=== PATIENT | male | born 1955 | race Hispanic/Latino ===

== ENCOUNTER 2017-11-09 09:32 | Day surgery (SDC) | payer MEDICARE ==
[2017-11-08 11:34] VITALS: BMI 26.4
[2017-11-09 10:21] LABS: INR-International Normal Ratio 1.4; Prothrombin Time 17.2 SEC (12.0-14.7)
[2017-11-09 10:31] LABS: #Eosinphils 0.5 thou/uL (0.0-0.7); #Lymphocytes 1.5 thou/uL (1.20-3.40); #Monocytes 0.7 thou/uL (0.11-0.59); #Neutrophils 4.7 thou/uL (1.40-6.50); %Basophils 0.6 % (0.0-1.0); %Eosinophils 6.7 % (0.0-10.0); %Lymphocytes 20.3 % (21.0-51.0); %Monocytes 9.2 % (0.0-10.0); %Neutrophils 63.2 % (42.0-75.0); Hemoglobin 13.1 g/dL (14.0-18.0); Mean Corpuscular HGB CONC 34.6 g/dL (32.0-36.0); Mean Corpuscular Hemoglobin 35.3 pg (27.0-31.0); Mean Platelet Volume 6.6 fL (7.4-10.4); Platelet Count 159 thou/uL (130-400); RBC Distribution Width 14.4 % (11.5-14.5); Red Blood Cell (RBC) Count 3.72 mill/uL (4.70-6.10); White Blood Cell (WBC) Count 7.5 thou/uL (4.8-10.8)
[2017-11-09] MEDS ORDERED: Sodium Bicarbonate 2.5 MEQ/5 ML VIAL ONE (11:06)
[2017-11-09] MEDS ORDERED: Lidocaine 1% PF 5 ML VIAL ONE (11:07)
[2017-11-09 12:13] VITALS: BP 131/74; TEMP 98.1
[2017-11-09 12:45] LABS: BF Color Yellow; Body Fluid Source Ascites Body Fluid; Clarity Hazy (Clear); RBC Background Count 0.009; Tube # EDTA; WBC Background Count 0.01
[2017-11-09 12:46] LABS: WBC/NonHematic-Auto 302 /cumm
--- NOTE | 2017-11-09 13:32 | ULT ---
ULTRASOUND GUIDED PARACENTESIS: HISTORY: Ascites. TECHNIQUE: Multiple longitudinal and transverse images of the abdomen are obtained using a Multi-Hertz curviline ar transducer. Real-time images are used to evaluate ascites. The largest collection appears to be in the midline infraumbilical region. The skin surface was prepped and draped in the usual sterile m autumn, using a chloraprep introducer. The overlying skin was anesthetized using 1% Lidocaine solutio n. Using ultrasound guidance, a 5 Welsh Yueh needle was placed into the peritoneal cavity fluid col lection. A total of 2.3 L of fluid was removed without difficulty. IMPRESSION: Successful ultrasound-guided paracentesis. POS: [facility]
[2017-11-09 13:45] LABS: BF RBC Count - Manual 360 /cumm
--- NOTE | 2017-11-09 14:22 | ULT ---
HEPATIC ULTRASOUND WITH VASCULAR DUPLEX INCLUDING COLOR AND SPECTRAL DOPPLER IMAGING: HISTORY: A 62-year-old male with ascites. FINDINGS: Liver echogenicity is somewhat heterogeneous with some slight marginal nodularity. No evidence for g allstones, gallbladder wall thickening, or pericholecystic fluid. The common bile duct is 0.5 cm. B orderline splenomegaly. Probable small splenule. Minimal ascites, status post paracentesis. Vascular duplex with color and spectral Doppler imaging demonstrates antegrade hepatic arterial, port al venous, and hepatic venous flow. IMPRESSION: Coarse altered increased echogenicity with some slight marginal nodularity. No evidence of gallstone s or ductal dilatation. Antegrade hepatic venous, portal venous, and hepatic arterial flow. Borderl ine sized spleen. A very small amount of ascites post paracentesis. POS: [facility]
[2017-11-09 14:46] LABS: BF Segmented Neutrophils 10 %; Cell Count Non Hematic 58 %; Lymphocytes 31 %
== END 2017-11-09 12:14 | disposition home or self-care (01) ==
LOC: ULT 09:32
PROVIDERS: ATTEND Internal Medicine Gastroenterology
PROC: 0W9G3ZZ Drainage of Peritoneal Cavity, Percutaneous Approach (ICD-10-PCS; principal; 2017-11-09)
DX: R18.8 Other ascites (principal); K74.60 Unspecified cirrhosis of liver; E11.9 Type 2 diabetes mellitus without complications; I10 Essential (primary) hypertension; Z87.891 Personal history of nicotine dependence; Z79.84 Long term (current) use of oral hypoglycemic drugs; Z79.899 Other long term (current) drug therapy
CPT/HCPCS: 36415; 49083; 76705; 82042; 84157; 85025; 85060; 85610; 85730; 88112; 88305; 89051; J2001

== ENCOUNTER → 2017-12-07 | Day surgery (SDC) | payer MEDICARE ==
[2017-12-06 09:26] VITALS: BMI 26.4
[~2017-12-07] MED LIST: Sodium Bicarbonate 2.5 MEQ/5 ML VIAL ONE
[2017-12-07 12:25] LABS: #Eosinphils 1.9 thou/uL (0.0-0.7); #Lymphocytes 2.2 thou/uL (1.20-3.40); #Monocytes 0.9 thou/uL (0.11-0.59); #Neutrophils 3.2 thou/uL (1.40-6.50); %Basophils 0.6 % (0.0-1.0); %Eosinophils 23.2 % (0.0-10.0); %Lymphocytes 26.4 % (21.0-51.0); %Monocytes 10.8 % (0.0-10.0); %Neutrophils 39.1 % (42.0-75.0); Hemoglobin 13.2 g/dL (14.0-18.0); Mean Corpuscular HGB CONC 34.2 g/dL (32.0-36.0); Mean Corpuscular Hemoglobin 35.1 pg (27.0-31.0); Mean Platelet Volume 6.1 fL (7.4-10.4); Platelet Count 204 thou/uL (130-400); RBC Distribution Width 14.4 % (11.5-14.5); Red Blood Cell (RBC) Count 3.75 mill/uL (4.70-6.10); White Blood Cell (WBC) Count 8.2 thou/uL (4.8-10.8)
[2017-12-07 12:39] LABS: INR-International Normal Ratio 1.5; PTT 35.9 SEC (22.9-36.1); Prothrombin Time 18.2 SEC (12.0-14.7)
[2017-12-07 13:55] VITALS: TEMP 97.1
--- NOTE | 2017-12-07 14:13 | ULT ---
ULTRASOUND PARACENTESIS THERAPEUTIC: Date: 12/07/17 HISTORY: 62-year-old male with ascites. TECHNIQUE: Four quadrant abdominal survey performed. Signed, informed consent obtained. Right lower quadrant rafael ected. Overlying skin prepared and draped in the usual sterile fashion. 25 gauge needle used to apply buffered lidocaine superficially and deeply, under ultrasound guidance. 5 Polish Yueh catheter and s tylette advanced in tandem with the 25 gauge needle under ultrasound guidance. 25 gauge needle and Stokes eh stylette removed. Yueh catheter connected to evacuated bottles via plastic tubing. Ascites fluid d rained. Catheter removed. Patient tolerated procedure well. No complications. FINDINGS: Prior to the procedure, ultrasound images demonstrate moderate volume of free intraperitoneal fluid, greatest in the right lower quadrant with the patient in RPO position. Postprocedure image demonstrat es no residual fluid in the right lower quadrant. A total of 2,900 mL of ascites fluid was drained. IMPRESSION: Successful therapeutic paracentesis, with drainage of 2.9 liters of ascites fluid. POS: [facility]
== END ==
LOC: ULT 12:01
PROVIDERS: ATTEND Radiology Neuroradiology
PROC: 0W9G3ZZ Drainage of Peritoneal Cavity, Percutaneous Approach (ICD-10-PCS; principal; 2017-12-07)
DX: R18.8 Other ascites (principal); K74.60 Unspecified cirrhosis of liver
CPT/HCPCS: 36415; 49083; 85025; 85610; 85730

== ENCOUNTER 2018-01-26 07:46 | Day surgery (SDC) | payer MEDICARE, MEDICAID ==
[2018-01-26 08:12] LABS: INR-International Normal Ratio 1.3; PTT 34.4 SEC (22.9-36.1); Prothrombin Time 16.7 SEC (12.0-14.7)
[2018-01-26 08:15] LABS: #Eosinphils 1.7 thou/uL (0.0-0.7); #Lymphocytes 1.9 thou/uL (1.20-3.40); #Monocytes 0.8 thou/uL (0.11-0.59); #Neutrophils 2.6 thou/uL (1.40-6.50); %Basophils 0.7 % (0.0-1.0); %Eosinophils 24.6 % (0.0-10.0); %Lymphocytes 27.2 % (21.0-51.0); %Monocytes 10.7 % (0.0-10.0); %Neutrophils 36.8 % (42.0-75.0); Hemoglobin 12.3 g/dL (14.0-18.0); Mean Corpuscular HGB CONC 33.5 g/dL (32.0-36.0); Mean Corpuscular Hemoglobin 33.3 pg (27.0-31.0); Mean Corpuscular Volume 99.5 fL (78.0-98.0); Mean Platelet Volume 7.1 fL (7.4-10.4); Platelet Count 135 thou/uL (130-400); RBC Distribution Width 14.3 % (11.5-14.5); Red Blood Cell (RBC) Count 3.71 mill/uL (4.70-6.10)
[2018-01-26] MEDS ORDERED: Sodium Bicarbonate 2.5 MEQ/5 ML VIAL ONE (08:20)
[2018-01-26] MEDS ORDERED: Lidocaine 1% PF 5 ML VIAL ONE (08:27)
--- NOTE | 2018-01-26 10:05 | ULT ---
ULTRASOUND GUIDED PARACENTESIS: HISTORY: Recurrent ascites. FINDINGS: After informed consent was obtained, the patient was prepped and draped in the normal sterile fashion . The largest pocket of fluid was in the left lower quadrant of the abdomen. Local anesthesia was o btained with 1% Xylocaine mixed with sodium bicarb. A small skin incision was made with a #11 scalpe l blade. A 6 Danish Yueh catheter was introduced and 5 liters of typical straw-colored fluid was obt ained. The patient tolerated the procedure. There were no immediate complications. IMPRESSION: Successful ultrasound-guided paracentesis with 5 liters of fluid. POS: [facility]
[2018-01-26 15:19] VITALS: BP 131/74; TEMP 97.6
== END 2018-01-26 09:20 | disposition home or self-care (01) ==
LOC: ULT 07:46
PROVIDERS: ATTEND Internal Medicine Gastroenterology
PROC: 0W9G3ZZ Drainage of Peritoneal Cavity, Percutaneous Approach (ICD-10-PCS; principal; 2018-01-26)
DX: R18.8 Other ascites (principal); K74.60 Unspecified cirrhosis of liver; I10 Essential (primary) hypertension; E11.9 Type 2 diabetes mellitus without complications; F10.11 Alcohol abuse, in remission; Z87.891 Personal history of nicotine dependence; Z79.84 Long term (current) use of oral hypoglycemic drugs; Z79.899 Other long term (current) drug therapy
CPT/HCPCS: 36415; 49083; 85025; 85610; 85730; J2001

== ENCOUNTER → 2018-03-09 | Day surgery (SDC) | payer MEDICARE, MEDICAID ==
[2018-03-08 13:29] VITALS: BMI 25.2
[~2018-03-09] MED LIST changes: +Lidocaine 1% PF 5 ML VIAL ONE
[2018-03-09 13:14] LABS: #Basophils 0.1 thou/uL (0.0-0.2); #Lymphocytes 1.5 thou/uL (1.20-3.40); #Monocytes 0.6 thou/uL (0.11-0.59); #Neutrophils 2.4 thou/uL (1.40-6.50); %Basophils 1.1 % (0.0-1.0); %Lymphocytes 26.4 % (21.0-51.0); %Monocytes 10.8 % (0.0-10.0); %Neutrophils 43.8 % (42.0-75.0); Hemoglobin 13.3 g/dL (14.0-18.0); Mean Corpuscular HGB CONC 32.5 g/dL (32.0-36.0); Mean Corpuscular Hemoglobin 32.1 pg (27.0-31.0); Mean Corpuscular Volume 98.7 fL (78.0-98.0); Mean Platelet Volume 6.5 fL (7.4-10.4); Platelet Count 205 thou/uL (130-400); RBC Distribution Width 13.8 % (11.5-14.5); Red Blood Cell (RBC) Count 4.14 mill/uL (4.70-6.10); White Blood Cell (WBC) Count 5.5 thou/uL (4.8-10.8)
[2018-03-09 13:26] LABS: INR-International Normal Ratio 1.3; PTT 34.5 SEC (22.9-36.1); Prothrombin Time 16.5 SEC (12.0-14.7)
--- NOTE | 2018-03-09 15:21 | ULT ---
ULTRASOUND-GUIDED PARACENTESIS: CLINICAL INDICATION: Ascites. PROCEDURE: After informed consent had been obtained, the patient was escorted to the ultrasound suite and placed in a supine position. The abdomen was imaged which revealed adequate ascites for the procedure. Th e skin of the abdomen was then prepped and draped in the standard sterile fashion and the skin surfac e, subcutaneous tissues, and peritoneal lining of the abdomen were anesthetized with 1% Lidocaine buf fered with sodium bicarbonate. A right lower quadrant approach was selected. A small skin incision was made at the site of topical anesthesia. Subsequently, under real-time ultrasound guidance a BioPharmX catheter was advanced through the incision site into the peritoneal cavity. Ascites was present at the catheter hub. The catheter was then secured to vacuum sealed sterile containers, via sterile tub ing and subsequently 5 L of clear yellow ascites was drained from the patient. The patient was then removed from the patient. The patient tolerated the procedure well without evidence of complication. Post procedure imaging revealed no complication and interval reduction in volume of ascites. The p atient was monitored by a radiology nurse and was stable in condition. IMPRESSION: Technically successful ultrasound-guided paracentesis, as above. POS: [facility]
== END ==
LOC: ULT 12:47
PROVIDERS: ATTEND Internal Medicine Gastroenterology
PROC: 0W9G3ZZ Drainage of Peritoneal Cavity, Percutaneous Approach (ICD-10-PCS; principal; 2018-03-09)
DX: R18.8 Other ascites (principal); K74.60 Unspecified cirrhosis of liver; E11.9 Type 2 diabetes mellitus without complications; I10 Essential (primary) hypertension; Z87.891 Personal history of nicotine dependence; Z79.899 Other long term (current) drug therapy
CPT/HCPCS: 36415; 49083; 85025; 85610; 85730; J2001

== ENCOUNTER 2018-03-31 07:48 | Day surgery (SDC) | payer MEDICARE, MEDICAID ==
[2018-03-31] MEDS ORDERED: Sodium Bicarbonate 2.5 MEQ/5 ML VIAL ONE (08:27)
[2018-03-31 10:00] VITALS: BP 122/81; TEMP 97.6
--- NOTE | 2018-03-31 10:44 | ULT ---
ULTRASOUND GUIDED PARACENTESIS: INDICATION: Ascites. TECHNIQUE: Informed consent was obtained. Preprocedure ultrasound was performed to evaluate the location of the largest collection within the abdominal cavity. A site overlying the left lower quadrant was marked. The site was prepped and draped in the usual sterile fashion. Buffered 1% Lidocaine was administer ed to the overlying subcutaneous tissues. Under ultrasound guidance, a 5 Nepali Yueh catheter was gu ided down into the collection in the left lower quadrant. Five liters of normal-appearing peritoneal fluid was removed. The patient tolerated the procedure without difficulty. IMPRESSION: Successful ultrasound-guided paracentesis removal of 5 liters of normal-appearing peritoneal fluid. POS: [facility]
== END 2018-03-31 09:15 | disposition home or self-care (01) ==
LOC: ULT 07:48
PROVIDERS: ATTEND Internal Medicine Gastroenterology
PROC: 0W9G3ZZ Drainage of Peritoneal Cavity, Percutaneous Approach (ICD-10-PCS; principal; 2018-03-31)
DX: R18.8 Other ascites (principal); K74.60 Unspecified cirrhosis of liver; E11.9 Type 2 diabetes mellitus without complications; I10 Essential (primary) hypertension; K76.6 Portal hypertension; F10.11 Alcohol abuse, in remission; Z87.891 Personal history of nicotine dependence; Z79.84 Long term (current) use of oral hypoglycemic drugs; Z79.899 Other long term (current) drug therapy
CPT/HCPCS: 49083

== ENCOUNTER 2018-04-21 07:59 | Day surgery (SDC) | payer MEDICARE, MEDICAID ==
[2018-04-20 09:28] VITALS: BMI 26.4
[2018-04-21 08:15] LABS: #Eosinphils 0.9 thou/uL (0.0-0.7); #Lymphocytes 1.5 thou/uL (1.20-3.40); #Monocytes 0.4 thou/uL (0.11-0.59); #Neutrophils 2.7 thou/uL (1.40-6.50); %Basophils 0.7 % (0.0-1.0); %Eosinophils 16.3 % (0.0-10.0); %Lymphocytes 26.8 % (21.0-51.0); %Monocytes 7.7 % (0.0-10.0); %Neutrophils 48.4 % (42.0-75.0); Hemoglobin 12.1 g/dL (14.0-18.0); Mean Corpuscular HGB CONC 33.2 g/dL (32.0-36.0); Mean Corpuscular Hemoglobin 32.1 pg (27.0-31.0); Mean Corpuscular Volume 96.6 fL (78.0-98.0); Mean Platelet Volume 6.9 fL (7.4-10.4); Platelet Count 190 thou/uL (130-400); RBC Distribution Width 14.4 % (11.5-14.5); Red Blood Cell (RBC) Count 3.78 mill/uL (4.70-6.10); White Blood Cell (WBC) Count 5.5 thou/uL (4.8-10.8)
[2018-04-21 08:21] LABS: INR-International Normal Ratio 1.4; PTT 34.9 SEC (22.9-36.1); Prothrombin Time 16.9 SEC (12.0-14.7)
[2018-04-21] MEDS ORDERED: Sodium Bicarbonate 2.5 MEQ/5 ML VIAL ONE (08:35)
[2018-04-21 12:11] VITALS: BP 111/64; TEMP 97.9
--- NOTE | 2018-04-21 12:16 | ULT ---
ULTRASOUND GUIDED PARACENTESIS THERAPEUTIC: DATE: 04/21/2018. HISTORY: A 62-year-old male with abdominal distention due to ascites due to cirrhosis. Limit of 5 liters or less drainage specifically ordered. TECHNIQUE: Signed informed consent obtained. Four quadrant survey of abdomen with ultrasound. Left lower quadr ant pocket selected. Overlying skin prepared and draped in the usual sterile fashion. A 25-gauge ne edle was used to apply buffered Lidocaine superficially and deeply through the abdominal wall and per itoneal surface. A 5 Bulgarian Yueh catheter with stylette advanced in tandem with the 25-gauge needle. The 25-gauge needle and stylette were removed. Yueh catheter connected to a series of evacuated gregorio ttles via plastic tubing. After drainage, the Yueh catheter was removed. The patient tolerated the procedure well. No complications. FINDINGS: Images prior to the procedure demonstrate large volume of free intraperitoneal fluid. A total of 5000 mL of nonhemorrhagic, straw-colored fluid was drained. Post procedure images still demonstrate a moderate to large volume of residual fluid. IMPRESSION: 1. Successful therapeutic paracentesis, with drainage of 5 liters of ascites. 2. Moderate to large volume of residual ascites remains after the requested limit of 5 liter drainag e. POS: [facility]
== END 2018-04-21 09:38 | disposition home or self-care (01) ==
LOC: ULT 07:59
PROVIDERS: ATTEND Internal Medicine Gastroenterology
PROC: 0W9G3ZZ Drainage of Peritoneal Cavity, Percutaneous Approach (ICD-10-PCS; principal; 2018-04-21)
PROC: BW40ZZZ Ultrasonography of Abdomen (ICD-10-PCS; 2018-04-21)
DX: K74.60 Unspecified cirrhosis of liver (principal); R18.8 Other ascites
CPT/HCPCS: 36415; 49083; 85025; 85610; 85730

== ENCOUNTER 2018-05-12 08:07 | Day surgery (SDC) | payer MEDICARE, MEDICAID ==
[2018-05-11 16:26] VITALS: BMI 26.4
--- NOTE | 2018-05-12 11:05 | ULT ---
ULTRASOUND GUIDED PARACENTESIS: Date: 05-12-18 History: Cirrhosis. Ascites. Technique: After informed consent was obtained, the patient was placed on the ultrasound table in supine positio n. Limited sonogram of the abdomen was performed. An area in the midaxillary line, left mid abdomen, was marked. The area of prepped and draped in the usual sterile fashion. Skin and subcutaneous tissues were infiltrated with buffered 1% Lidocaine for local anesthesia. Small skin incision was made. Utilizing concurrent real-time ultrasound guidance, a 19 gauge QURIUM Solutionseh needle w ith 5 Slovak catheter were advanced into the abdomen. After the return of fluid, the catheter was adv anced and needle was removed. Approximately 5 L of cloudy yellow fluid was aspirated. The catheter wa s removed and hemostatis was achieved with direct pressure. Dry sterile dressing was placed. Patient tolerated the procedure well and without immediate complication. [facility] monitoring prior to discharged. IMPRESSION: Technically successful ultrasound guided paracentesis. POS: [facility]
[2018-05-12 12:38] VITALS: BP 130/73; TEMP 98
== END 2018-05-12 09:30 | disposition home or self-care (01) ==
LOC: ULT 08:07
PROVIDERS: ATTEND Internal Medicine Gastroenterology
PROC: 0W9G3ZZ Drainage of Peritoneal Cavity, Percutaneous Approach (ICD-10-PCS; principal; 2018-05-12)
DX: R18.8 Other ascites (principal); K74.60 Unspecified cirrhosis of liver; E11.9 Type 2 diabetes mellitus without complications; I10 Essential (primary) hypertension; F10.11 Alcohol abuse, in remission; Z87.891 Personal history of nicotine dependence; Z79.84 Long term (current) use of oral hypoglycemic drugs; Z79.899 Other long term (current) drug therapy
CPT/HCPCS: 49083

== ENCOUNTER 2018-06-02 08:32 | Day surgery (SDC) | payer MEDICARE, MEDICAID ==
[2018-06-01 10:09] VITALS: BMI 26.4
[2018-06-02 08:48] LABS: #Eosinphils 0.3 thou/uL (0.0-0.7); #Lymphocytes 1.5 thou/uL (1.20-3.40); #Monocytes 0.5 thou/uL (0.11-0.59); #Neutrophils 2.4 thou/uL (1.40-6.50); %Eosinophils 5.9 % (0.0-10.0); %Lymphocytes 31.9 % (21.0-51.0); %Neutrophils 51.2 % (42.0-75.0); Hemoglobin 12.4 g/dL (14.0-18.0); Mean Corpuscular HGB CONC 32.2 g/dL (32.0-36.0); Mean Corpuscular Hemoglobin 31.6 pg (27.0-31.0); Mean Corpuscular Volume 98.2 fL (78.0-98.0); Mean Platelet Volume 6.2 fL (7.4-10.4); Platelet Count 233 thou/uL (130-400); RBC Distribution Width 13.4 % (11.5-14.5); Red Blood Cell (RBC) Count 3.92 mill/uL (4.70-6.10); White Blood Cell (WBC) Count 4.7 thou/uL (4.8-10.8)
[2018-06-02] MEDS ORDERED: Lidocaine 1% PF 5 ML VIAL ONE (08:49)
[2018-06-02] MEDS ORDERED: Sodium Bicarbonate 2.5 MEQ/5 ML VIAL ONE (08:49)
[2018-06-02 08:52] LABS: INR-International Normal Ratio 1.4; Prothrombin Time 17.1 SEC (12.0-14.7)
[2018-06-02 08:53] LABS: PTT 36.4 SEC (22.9-36.1)
[2018-06-02 10:38] VITALS: BP 137/84; TEMP 97.9
--- NOTE | 2018-06-02 13:34 | ULT ---
ULTRASOUND GUIDED PARACENTESIS: 06/02/2018 HISTORY: Cirrhosis and refractory ascites. TECHNIQUE: After informed consent was obtained, the patient was placed on the sonography table in the supine pos ition. A limited sonographic evaluation of the abdomen was performed. An area in the mid axillary l ine, right mid abdomen, was marked and meticulously prepped and draped in the usual sterile fashion. The skin and subcutaneous tissues were infiltrated with buffered 1% Lidocaine for local anesthesia. A small skin incision was made. Utilizing concurrent real-time ultrasound guidance, a 19 gauge AppZeroeh needle with a 5 Irish catheter was advanced into the abdomen. After the return of fluid, the cathet er was advanced and the needle was removed. Approximately 5 L of clear straw-colored fluid was aspir ated, as requested. The catheter was removed and hemostasis was achieved with direct pressure. Follow-up imaging demonst rated a small amount of residual intraperitoneal free fluid in the abdomen. IMPRESSION: Technically successful ultrasound guided paracentesis. POS: [facility]
== END 2018-06-02 10:15 | disposition home or self-care (01) ==
LOC: ULT 08:32
PROVIDERS: ATTEND Radiology Vascular & Interventional Radiology
PROC: 0W9G3ZZ Drainage of Peritoneal Cavity, Percutaneous Approach (ICD-10-PCS; principal; 2018-06-02)
DX: R18.8 Other ascites (principal); K74.60 Unspecified cirrhosis of liver; Z79.84 Long term (current) use of oral hypoglycemic drugs; Z79.899 Other long term (current) drug therapy
CPT/HCPCS: 36415; 49083; 85025; 85610; 85730; J2001

== ENCOUNTER 2018-06-16 12:55 | Day surgery (SDC) | payer MEDICARE, MEDICAID ==
[2018-06-16 14:46] VITALS: BP 130/66; TEMP 97.8
--- NOTE | 2018-06-17 16:18 | ULT ---
ULTRASOUND GUIDED PARACENTESIS: Date: 06/16/18 HISTORY: Recurrent ascites. TECHNIQUE/FINDINGS: After informed consent was obtained, the patient was prepped and draped in the normal sterile fashion . Local anesthesia was obtained with 1% Xylocaine. The right lower quadrant was used for the paracent esis. A 6 Malay Yueh catheter was introduced after a small skin incision made with a #11 scalpel edelmira de. A total of 5 liters of typical straw-colored fluid was obtained. The patient tolerated the proced ure well. There were no immediate complications. IMPRESSION: Ultrasound guided paracentesis of 5 liters of fluid. POS: [facility]
== END 2018-06-16 14:35 | disposition home or self-care (01) ==
LOC: ULT 12:55
PROVIDERS: ATTEND Internal Medicine Gastroenterology
PROC: 0W9G3ZZ Drainage of Peritoneal Cavity, Percutaneous Approach (ICD-10-PCS; principal; 2018-06-16)
DX: R18.8 Other ascites (principal); K74.60 Unspecified cirrhosis of liver; F10.11 Alcohol abuse, in remission; I10 Essential (primary) hypertension; E11.9 Type 2 diabetes mellitus without complications; Z79.84 Long term (current) use of oral hypoglycemic drugs; Z79.899 Other long term (current) drug therapy
CPT/HCPCS: 49083

== ENCOUNTER → 2018-06-30 | Day surgery (SDC) | payer MEDICARE, MEDICAID ==
[2018-06-29 13:14] VITALS: BMI 26.4
[2018-06-30 13:42] VITALS: BP 149/88; TEMP 98
--- NOTE | 2018-06-30 13:58 | ULT ---
ULTRASOUND GUIDED PARACENTESIS: HISTORY: Ascites. COMPARISON: 06/16/2018 FINDINGS: Successful ultrasound-guided paracentesis. A total of 5 L of yellow-colored ascites was aspirated. TECHNIQUE: Consent obtained to perform an ultrasound guided paracentesis. The patient's abdomen was evaluated. The left lower quadrant was deemed appropriate. The skin was prepped and draped in a sterile fashio n, and 1% Lidocaine, buffered with sodium bicarbonate, was used for local anesthesia. Under ultrasou nd guidance, a 5 Divehi, 7 cm Yueh catheter was advanced into the peritoneal space. Via vacuum bottl es, a total of 5 L of yellow-colored ascites was aspirated. The patient tolerated the procedure well . No immediate or post procedure complications. IMPRESSION: Successful ultrasound guided paracentesis. POS: [facility]
== END ==
LOC: ULT 10:30
PROVIDERS: ATTEND Internal Medicine Gastroenterology
PROC: 0W9G3ZZ Drainage of Peritoneal Cavity, Percutaneous Approach (ICD-10-PCS; principal; 2018-06-30)
DX: K74.60 Unspecified cirrhosis of liver (principal); R18.8 Other ascites; R79.89 Other specified abnormal findings of blood chemistry; E11.9 Type 2 diabetes mellitus without complications; I10 Essential (primary) hypertension; Z87.891 Personal history of nicotine dependence; Z79.84 Long term (current) use of oral hypoglycemic drugs; Z79.899 Other long term (current) drug therapy
CPT/HCPCS: 49083; J2001

== ENCOUNTER 2018-07-14 10:09 | Day surgery (SDC) | payer MEDICARE, MEDICAID ==
[2018-07-13 10:07] VITALS: BMI 26.4
[2018-07-14 10:29] LABS: Mean Corpuscular HGB CONC 33.1 g/dL (32.0-36.0); Mean Corpuscular Hemoglobin 32.6 pg (27.0-31.0); Mean Corpuscular Volume 98.5 fL (78.0-98.0); Mean Platelet Volume 6.1 fL (7.4-10.4); Platelet Count 195 thou/uL (130-400); RBC Distribution Width 14.7 % (11.5-14.5); White Blood Cell (WBC) Count 6.8 thou/uL (4.8-10.8)
[2018-07-14 10:35] LABS: INR-International Normal Ratio 1.3; PTT 33.5 SEC (22.9-36.1); Prothrombin Time 16.1 SEC (12.0-14.7)
[2018-07-14 10:43] LABS: Band 2 % (5-11); Eosinophils 43 % (0-10); Lymphocytes 16 % (21-51); MDiff Complete? YES; Monocytes 6 % (0-10); Neutrophil 26 % (42-75); Platelet Morphology Comment Appears Adequate; RBC Morphology Normal; Reactive Lymphocytes 6 % (0-10)
[2018-07-14] MEDS ORDERED: Sodium Bicarbonate 2.5 MEQ/5 ML VIAL ONE (10:47)
[2018-07-14 12:14] VITALS: BP 133/76; TEMP 97.8
--- NOTE | 2018-07-14 14:04 | ULT ---
ULTRASOUND GUIDED PARACENTESIS THERAPEUTIC: Date: 07/14/18 HISTORY: 62-year-old male with abdominal distention due to ascites. TECHNIQUE: Signed, informed consent obtained. Four quadrant survey of abdomen with ultrasound. Left lower quadra nt selected. Overlying skin prepared and draped in usual sterile fashion. 25 gauge needle used to guillermo ly buffered lidocaine. 5 Hungarian Yueh catheter advanced into peritoneal cavity pocket of free fluid in the left lower quadrant. After removal of stylette, the Yueh catheter was connected to a series of e vacuated bottles via plastic tubing. After drainage, the Yueh was removed. The patient tolerated the procedure well. No complications. FINDINGS: Prior to the procedure, there is a large volume of free intraperitoneal fluid. A total of 6,000 mL of nonhemorrhagic, straw-colored fluid, was drained. Postprocedure image demonstrates a small amount of residual fluid in the left lower quadrant. IMPRESSION: Successful paracentesis with drainage of 6 liters of ascites fluid. POS: [facility]
== END 2018-07-14 12:05 | disposition home or self-care (01) ==
LOC: ULT 10:09
PROVIDERS: ATTEND Internal Medicine Gastroenterology
PROC: 0W9G3ZZ Drainage of Peritoneal Cavity, Percutaneous Approach (ICD-10-PCS; principal; 2018-07-14)
DX: K74.60 Unspecified cirrhosis of liver (principal); R18.8 Other ascites; I10 Essential (primary) hypertension; E11.9 Type 2 diabetes mellitus without complications; F10.11 Alcohol abuse, in remission; Z87.891 Personal history of nicotine dependence; Z79.84 Long term (current) use of oral hypoglycemic drugs; Z79.899 Other long term (current) drug therapy
CPT/HCPCS: 49083; 85025; 85060; 85610; 85730

== ENCOUNTER 2018-07-28 10:36 | Day surgery (SDC) | payer MEDICARE, MEDICAID ==
[2018-07-27 13:03] VITALS: BMI 26.4
[2018-07-28] MEDS ORDERED: Sodium Bicarbonate 2.5 MEQ/5 ML VIAL ONE (11:09)
[2018-07-28] MEDS ORDERED: Lidocaine 1% PF 5 ML VIAL ONE (11:09)
[2018-07-28 13:04] VITALS: BP 131/69; TEMP 98
--- NOTE | 2018-07-28 13:38 | ULT ---
ULTRASOUND GUIDED PARACENTESIS: Date: 07/28/18 COMPARISON: 07/14/18. HISTORY: Ascites. FINDINGS: Successful ultrasound guided paracentesis. A total of 8 liters of slightly cloudy, yellow-colored asc ites aspirated. No immediate or postprocedure complications. TECHNIQUE: Consent obtained to perform an ultrasound guided paracentesis. Left lower quadrant was deemed appropr iate. Skin was prepped and draped in the sterile fashion. 1% lidocaine, buffered with sodium bicarbon ate, was used for local anesthesia. Under ultrasound guidance, a 5 Faroese 7 cm ID Quantiqueeh catheter was adva nced into the peritoneal space. Via multiple vacuum bottles, a total of 8 liters of slightly cloudy y ellow-colored ascites was aspirated. The patient tolerated the procedure well. No immediate or postpr ocedure complication. IMPRESSION: Successful ultrasound guided paracentesis. POS: [facility]
== END 2018-07-28 12:40 | disposition home or self-care (01) ==
LOC: ULT 10:36
PROVIDERS: ATTEND Internal Medicine Gastroenterology
PROC: 0W9G3ZZ Drainage of Peritoneal Cavity, Percutaneous Approach (ICD-10-PCS; principal; 2018-07-28)
DX: R18.8 Other ascites (principal); Z79.84 Long term (current) use of oral hypoglycemic drugs; Z79.899 Other long term (current) drug therapy
CPT/HCPCS: 49083; J2001

== ENCOUNTER 2018-08-11 10:47 | Day surgery (SDC) | payer MEDICARE, MEDICAID ==
[2018-08-10 14:37] VITALS: BMI 26.4
[2018-08-11] MEDS ORDERED: Sodium Bicarbonate 2.5 MEQ/5 ML VIAL ONE (10:54)
[2018-08-11] MEDS ORDERED: Lidocaine 1% PF 5 ML VIAL ONE (10:54)
[2018-08-11 13:16] VITALS: BP 129/74; TEMP 97.8
--- NOTE | 2018-08-11 14:03 | ULT ---
ULTRASOUND GUIDED PARACENTESIS: Date: 08/11/18 COMPARISON: 07/28/18. HISTORY: Ascites. FINDINGS: Successful ultrasound guided paracentesis. Total of 7,400 mL of yellow cloudy ascites aspirated. Jacqueline ent tolerated procedure well. No immediate or postprocedure complication. TECHNIQUE: Consent obtained to perform an ultrasound guided paracentesis. Patient's abdomen was evaluated. Right lower quadrant was deemed appropriate. Skin was prepped and draped in the sterile fashion. 1% lidoca ine, buffered with sodium bicarbonate, was used for local anesthesia. Under ultrasound guidance, a 7 cm 5 Yi Yueh catheter was advanced into the peritoneal space. A total of 4,500 mL of slightly yel low-colored ascites was aspirated. The tube was accidentally pulled out and a second Yueh catheter wa s inserted into the peritoneal space following the same sterile technique. A total of 7,400 mL of yel low cloudy fluid was aspirated. No immediate or postprocedure complications. IMPRESSION: Successful ultrasound guided paracentesis. POS: [facility]
== END 2018-08-11 12:55 | disposition home or self-care (01) ==
LOC: ULT 10:47
PROVIDERS: ATTEND Internal Medicine Gastroenterology
PROC: 0W9G3ZZ Drainage of Peritoneal Cavity, Percutaneous Approach (ICD-10-PCS; principal; 2018-08-11)
DX: R18.8 Other ascites (principal)
CPT/HCPCS: 49083; J2001

== ENCOUNTER 2018-08-25 10:38 | Day surgery (SDC) | payer MEDICARE, MEDICAID ==
[2018-08-24 14:38] VITALS: BMI 26.6
[2018-08-25 10:57] LABS: #Eosinphils 0.4 thou/uL (0.0-0.7); #Lymphocytes 1.2 thou/uL (1.20-3.40); #Monocytes 0.4 thou/uL (0.11-0.59); #Neutrophils 2.1 thou/uL (1.40-6.50); %Basophils 0.8 % (0.0-1.0); %Eosinophils 9.9 % (0.0-10.0); %Lymphocytes 29.7 % (21.0-51.0); %Monocytes 8.5 % (0.0-10.0); %Neutrophils 51.1 % (42.0-75.0); Hemoglobin 14.7 g/dL (14.0-18.0); Mean Corpuscular HGB CONC 32.8 g/dL (32.0-36.0); Mean Corpuscular Hemoglobin 31.5 pg (27.0-31.0); Mean Corpuscular Volume 96.1 fL (78.0-98.0); Mean Platelet Volume 6.4 fL (7.4-10.4); Platelet Count 175 thou/uL (130-400); RBC Distribution Width 14.3 % (11.5-14.5); Red Blood Cell (RBC) Count 4.66 mill/uL (4.70-6.10); White Blood Cell (WBC) Count 4.2 thou/uL (4.8-10.8)
[2018-08-25 11:04] LABS: INR-International Normal Ratio 1.2
[2018-08-25 11:05] LABS: PTT 34.6 SEC (22.9-36.1)
[2018-08-25] MEDS ORDERED: Sodium Bicarbonate 2.5 MEQ/5 ML VIAL ONE (11:22)
--- NOTE | 2018-08-25 14:53 | ULT ---
Sonographic guided paracentesis HISTORY: Recurrent ascites. FINDINGS: After explaining the procedure and answering all questions, sonographic survey shows modera te amount of free fluid throughout the abdomen. Sterile technique, buffered local anesthesia, sonographic guidance, and a right lateral approach were used carefully advanced the tip of a 19-gauge Yueh needle and catheter into the free fluid. A small amount of cloudy yellow liquid was drained. Additional liquid would not come out immediately. Imaging showed bowel surrounding the catheter. A second access was made with a different Yueh needle and catheter. The catheter was left to drain a total volume of 3.0 L cloudy yellow liquid. Catheter was removed. Small amount of fluid remained. Patient tolerated the procedure well and was dismissed in good condition. IMPRESSION: Technically successful sonographic guided paracentesis yielding 3 L of cloudy yellow liqu id.
== END 2018-08-25 12:25 | disposition home or self-care (01) ==
LOC: ULT 10:38
PROVIDERS: ATTEND Internal Medicine Gastroenterology
PROC: 0W9G3ZZ Drainage of Peritoneal Cavity, Percutaneous Approach (ICD-10-PCS; principal; 2018-08-25)
DX: R18.8 Other ascites (principal); K74.60 Unspecified cirrhosis of liver; I10 Essential (primary) hypertension; E11.9 Type 2 diabetes mellitus without complications; F17.200 Nicotine dependence, unspecified, uncomplicated
CPT/HCPCS: 49083; 85025; 85610; 85730

== ENCOUNTER 2018-09-08 10:41 | Day surgery (SDC) | payer MEDICARE, MEDICAID ==
[2018-09-07 08:32] VITALS: BMI 26.6
[2018-09-08] MEDS ORDERED: Sodium Bicarbonate 2.5 MEQ/5 ML VIAL ONE (10:57)
--- NOTE | 2018-09-08 12:49 | ULT ---
ULTRASOUND GUIDED ABDOMINAL PARACENTESIS: INDICATIONS: Cirrhosis with recurrent ascites. FINDINGS: Yellow, cloudy, acidic fluid, 7250 mL, was removed from the right lower quadrant. Post procedure ult rasound showed small-volume residual ascites. PROCEDURE IN DETAIL: A four-quadrant ultrasound showed large-volume ascites. The right lower quadrant was chosen for punc ture. The overlying skin was prepped and draped in a sterile manner. Local anesthesia was administe red with Lidocaine and bicarbonate. A tiny skin incision was made with a scalpel. A 5 Citizen Of [place] ScaleBaseeh ca theter with needle in place was introduced into the acidic fluid in the right lower quadrant, under u ltrasound guidance. The catheter was advanced as the needle was removed. The catheter was attached to suction drainage. Yellow, cloudy fluid, 7250 mL, was removed. Post procedure ultrasound showed s mall-volume residual ascites. There were no problems or complications. POS: [facility]
[2018-09-08 12:55] VITALS: BP 137/73; TEMP 97.7
[2018-09-08 15:21] LABS: BF Color Yellow; Body Fluid Source Ascites Body Fluid; Clarity Hazy (Clear); Tube # EDTA
[2018-09-08 15:22] LABS: BF RBC Count - Manual 20 /cumm; BF WBC/Nonhematics Ct. - Manua 53 /cumm
[2018-09-08 15:59] LABS: BF Segmented Neutrophils 1 %; Cell Count Non Hematic 36 %; Lymphocytes 63 %
== END 2018-09-08 12:11 | disposition home or self-care (01) ==
LOC: ULT 10:41
PROVIDERS: ATTEND Internal Medicine Gastroenterology
PROC: 0W9G3ZZ Drainage of Peritoneal Cavity, Percutaneous Approach (ICD-10-PCS; principal; 2018-09-08)
DX: K74.60 Unspecified cirrhosis of liver (principal); R18.8 Other ascites; K72.90 Hepatic failure, unspecified without coma; E11.9 Type 2 diabetes mellitus without complications; I10 Essential (primary) hypertension; Z87.891 Personal history of nicotine dependence; Z79.899 Other long term (current) drug therapy; Z79.84 Long term (current) use of oral hypoglycemic drugs
CPT/HCPCS: 49083; 85060; 87070; 87205; 89051

== ENCOUNTER 2018-09-22 11:08 | Day surgery (SDC) | payer MEDICARE, MEDICAID ==
[2018-09-21 14:31] VITALS: BMI 26.6
[2018-09-22] MEDS ORDERED: Sodium Bicarbonate 2.5 MEQ/5 ML VIAL ONE (11:58)
[2018-09-22 13:15] VITALS: BP 119/70; TEMP 98.4
--- NOTE | 2018-09-22 13:20 | ULT ---
Sonographic guided paracentesis HISTORY: Recurrent ascites. FINDINGS: After explaining the procedure and answering all questions, sonographic survey shows a larg e amount of free fluid. Sterile technique, buffered local anesthesia, sonographic guidance, and a right anterior abdominal approach were used to carefully advance a 19-gauge Yueh needle and catheter into the free fluid. Catheter was left to drain a total volume of 6.0 L of hazy pale gold liquid. Minimal fluid remains. Catheter was removed. Patient tolerated the procedure well and was dismissed i n good condition. IMPRESSION: Technically successful sonographic guided paracentesis.
== END 2018-09-22 13:00 | disposition home or self-care (01) ==
LOC: ULT 11:08
PROVIDERS: ATTEND Internal Medicine Gastroenterology
PROC: 0W9G30Z Drainage of Peritoneal Cavity with Drainage Device, Percutaneous Approach (ICD-10-PCS; principal; 2018-09-22)
DX: K74.60 Unspecified cirrhosis of liver (principal); R18.8 Other ascites; Z79.84 Long term (current) use of oral hypoglycemic drugs; Z79.899 Other long term (current) drug therapy
CPT/HCPCS: 49083

== ENCOUNTER 2018-10-06 09:19 | Day surgery (SDC) | payer MEDICARE, MEDICAID ==
[2018-10-05 14:50] VITALS: BMI 26.6
[2018-10-06 09:29] LABS: #Eosinphils 0.3 thou/uL (0.0-0.7); #Lymphocytes 1.2 thou/uL (1.20-3.40); #Monocytes 0.5 thou/uL (0.11-0.59); #Neutrophils 2.2 thou/uL (1.40-6.50); %Basophils 0.8 % (0.0-1.0); %Eosinophils 7.5 % (0.0-10.0); %Lymphocytes 28.2 % (21.0-51.0); %Neutrophils 52.5 % (42.0-75.0); Hemoglobin 13.8 g/dL (14.0-18.0); Mean Corpuscular HGB CONC 33.8 g/dL (32.0-36.0); Mean Corpuscular Volume 97.7 fL (78.0-98.0); Mean Platelet Volume 6.1 fL (7.4-10.4); Platelet Count 196 thou/uL (130-400); RBC Distribution Width 14.1 % (11.5-14.5); Red Blood Cell (RBC) Count 4.19 mill/uL (4.70-6.10); White Blood Cell (WBC) Count 4.3 thou/uL (4.8-10.8)
[2018-10-06 09:37] LABS: INR-International Normal Ratio 1.1; Prothrombin Time 14.8 SEC (12.0-14.7)
[2018-10-06 09:38] LABS: PTT 34.1 SEC (22.9-36.1)
--- NOTE | 2018-10-06 10:59 | ULT ---
Ultrasound-guided paracentesis: HISTORY: Symptomatic ascites FINDINGS: Informed consent obtained prior to the procedure. Preprocedural imaging demonstrated signif icant ascites throughout the abdomen and pelvis. Right lower quadrant prepped and draped in normal sterile fashion and anesthetized with 1% buffered l idocaine. With direct sonographic guidance, 5 Azeri Yueh catheter is advanced into the ascites and removal of the stylet yielded yellow fluid. 5.8 L were removed. The patient tolerated the procedure well. No postprocedural complications. IMPRESSION: Successful ultrasound-guided paracentesis yielding 5.8 L of yellow ascites.
[2018-10-06 11:23] VITALS: BP 125/70; TEMP 98.1
== END 2018-10-06 11:10 | disposition home or self-care (01) ==
LOC: ULT 09:19
PROVIDERS: ATTEND Internal Medicine Gastroenterology
PROC: 0W9G3ZZ Drainage of Peritoneal Cavity, Percutaneous Approach (ICD-10-PCS; principal; 2018-10-06)
DX: K74.60 Unspecified cirrhosis of liver (principal); R18.8 Other ascites; F17.200 Nicotine dependence, unspecified, uncomplicated; E11.9 Type 2 diabetes mellitus without complications; I10 Essential (primary) hypertension; J44.9 Chronic obstructive pulmonary disease, unspecified; F10.10 Alcohol abuse, uncomplicated
CPT/HCPCS: 36415; 49083; 85025; 85610; 85730

== ENCOUNTER 2018-10-19 10:39 | Outpatient (CLI) | payer MEDICARE, MEDICAID ==
[~2018-10-19 10:39] MED LIST changes: +Iopamidol 300 61% 100 ML VIAL FS ONE; -Lidocaine 1% PF 5 ML VIAL ONE; -Sodium Bicarbonate 2.5 MEQ/5 ML VIAL ONE
[2018-10-19 11:08] LABS: Estimated GFR-MDRD - POC Greater than 90
--- NOTE | 2018-10-19 14:17 | CT ---
CT ABDOMEN WITH CONTRAST: HISTORY: Cirrhosis. COMPARISON: None. FINDINGS: Of note, this is not a CT abdomen and pelvis. Lung bases are clear. No pericardial effusion. The liver is small and cirrhotic with extensive fibrosis. Evaluation for underlying mass is limited without an arterial phase of contrast. The spleen is enlarged measuring 14 cm in length. Bilateral gynecomastia. Incidental note is made of a splenule. There is likely partial thrombosis of the main portal vein. Superior mesenteric vein is patent. Large volume ascites. Liver contour is nonaneurysmal. No hydronephrosis. No aortocaval adenopathy. Posterior spinal fusion hardware in the thoracic spine. Advanced degenerative changes of the lumbar spine. There is a 2B lumbosacral transitional vertebra. IMPRESSION: 1. Hepatic cirrhosis without definite mass. 2. Large volume ascites. 3. 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 POS: [facility]
== END 2018-10-19 10:40 | disposition home or self-care (01) ==
LOC: SCSCT 10:39
PROVIDERS: ATTEND Physician Assistant Medical
DX: K74.60 Unspecified cirrhosis of liver (principal); R18.8 Other ascites
CPT/HCPCS: 74160; 82565; Q9967

== ENCOUNTER 2018-10-20 10:20 | Day surgery (SDC) | payer MEDICARE, MEDICAID ==
[2018-10-19 13:32] VITALS: BMI 26.6
[2018-10-20] MEDS ORDERED: Sodium Bicarbonate 2.5 MEQ/5 ML VIAL ONE (11:49)
[2018-10-20 14:28] VITALS: BP 134/76; TEMP 98.6
--- NOTE | 2018-10-20 14:29 | ULT ---
Sonographic guided paracentesis HISTORY: Recurrent ascites. FINDINGS: After explaining the procedure and answering all questions, sonographic survey shows large amount of free fluid throughout the abdomen. Sterile technique, buffered local anesthesia, sonographic guidance, and a right lower quadrant approa ch were used to carefully advance a 19-gauge Yueh needle and catheter into the free fluid. Catheter was left to drain a total volume of 6.7 L slightly cloudy yellow liquid. Catheter was remove d with small amount of liquid remaining. Patient tolerated the procedure well and was dismissed in good condition. IMPRESSION: Technically successful sonographic guided paracentesis.
== END 2018-10-20 12:45 | disposition home or self-care (01) ==
LOC: ULT 10:20
PROVIDERS: ATTEND Internal Medicine Gastroenterology
PROC: 0W9G3ZZ Drainage of Peritoneal Cavity, Percutaneous Approach (ICD-10-PCS; principal; 2018-10-20)
DX: K74.60 Unspecified cirrhosis of liver (principal); R18.8 Other ascites; E11.9 Type 2 diabetes mellitus without complications; I10 Essential (primary) hypertension; Z87.891 Personal history of nicotine dependence; Z79.84 Long term (current) use of oral hypoglycemic drugs; Z79.899 Other long term (current) drug therapy
CPT/HCPCS: 49083

== ENCOUNTER 2018-11-03 10:51 | Day surgery (SDC) | payer MEDICARE, MEDICAID ==
[2018-11-01 12:22] VITALS: BMI 26.6
[2018-11-03] MEDS ORDERED: Sodium Bicarbonate 2.5 MEQ/5 ML VIAL ONE (11:12)
--- NOTE | 2018-11-03 12:06 | ULT ---
PREPROCEDURE DIAGNOSIS: Ascites POST PROCEDURE DIAGNOSIS: Same PROCEDURE: Ultrasound-guided paracentesis SHELL SORTER: Lina ANESTHESIA: 6 mL of buffered 1% lidocaine. SPECIMEN: 6 L of straw-colored fluid TECHNIQUE: Prior to the procedure, the risks and benefits of an ultrasound guided paracentesis were explained to the patient which consented fully to the procedure. The area of the largest fluid collection was seen in the right lower quadrant of the abdomen. This a oscar was prepped and draped in the usual sterile fashion. Lidocaine was used to anesthetize the skin and soft tissues down towards the peritoneal cavity. The p eritoneum was anesthetized. A small skin incision was made for passage of the Accur[employer] Networkseh needle and catheter. This device was then placed using ultrasound guidance into the peritoneal cavity. The needle was removed after return of fluid. The catheter was then connected to multiple Vacutainer bottles. A total of 6 L was removed. No residual fluid is seen in this region of the peritoneal cavity. IMPRESSION: Status post successful ultrasound-guided paracentesis
[2018-11-03 12:34] VITALS: BP 124/70; TEMP 98.3
== END 2018-11-03 12:20 | disposition home or self-care (01) ==
LOC: ULT 10:51
PROVIDERS: ATTEND Internal Medicine Gastroenterology
PROC: 0W9G30Z Drainage of Peritoneal Cavity with Drainage Device, Percutaneous Approach (ICD-10-PCS; principal; 2018-11-03)
DX: R18.8 Other ascites (principal); Z79.84 Long term (current) use of oral hypoglycemic drugs; Z79.899 Other long term (current) drug therapy
CPT/HCPCS: 49083

== ENCOUNTER 2018-11-17 10:40 | Day surgery (SDC) | payer MEDICARE, MEDICAID ==
[2018-11-16 12:22] VITALS: BMI 26.6
[2018-11-17 10:54] LABS: #Eosinphils 0.3 thou/uL (0.0-0.7); #Lymphocytes 1.3 thou/uL (1.20-3.40); #Monocytes 0.5 thou/uL (0.11-0.59); #Neutrophils 2.1 thou/uL (1.40-6.50); %Basophils 0.7 % (0.0-1.0); %Eosinophils 7.6 % (0.0-10.0); %Lymphocytes 29.8 % (21.0-51.0); %Monocytes 12.4 % (0.0-10.0); %Neutrophils 49.5 % (42.0-75.0); Hemoglobin 13.3 g/dL (14.0-18.0); Mean Corpuscular HGB CONC 32.4 g/dL (32.0-36.0); Mean Corpuscular Hemoglobin 32.6 pg (27.0-31.0); Mean Platelet Volume 6.1 fL (7.4-10.4); Platelet Count 151 thou/uL (130-400); RBC Distribution Width 13.7 % (11.5-14.5); Red Blood Cell (RBC) Count 4.09 mill/uL (4.70-6.10); White Blood Cell (WBC) Count 4.3 thou/uL (4.8-10.8)
[2018-11-17 11:03] LABS: INR-International Normal Ratio 1.2; PTT 34.5 SEC (22.9-36.1); Prothrombin Time 15.5 SEC (12.0-14.7)
[2018-11-17] MEDS ORDERED: Sodium Bicarbonate 2.5 MEQ/5 ML VIAL ONE (11:20)
[2018-11-17 12:32] VITALS: BP 123/71; TEMP 97.7
--- NOTE | 2018-11-17 13:02 | ULT ---
Ultrasound-guided paracentesis: HISTORY: Symptomatic ascites FINDINGS: Informed consent obtained prior to the procedure. Preprocedural imaging demonstrated signif icant ascites throughout the abdomen and pelvis. Left lower quadrantprepped and draped in normal sterile fashion and anesthetized with 1% buffered lid ocaine. With direct sonographic guidance, 5 Haitian Yueh catheter is advanced into the ascites and removal of the stylet yielded yellow fluid. 6.2 L were removed. The patient tolerated the procedure well. No postprocedural complications. IMPRESSION: Successful ultrasound-guided paracentesis yielding 6.2 L of yellow ascites.
== END 2018-11-17 12:25 | disposition home or self-care (01) ==
LOC: ULT 10:40
PROVIDERS: ATTEND Internal Medicine Gastroenterology
PROC: 0W9G30Z Drainage of Peritoneal Cavity with Drainage Device, Percutaneous Approach (ICD-10-PCS; principal; 2018-11-17)
DX: K74.60 Unspecified cirrhosis of liver (principal); R18.8 Other ascites; E11.9 Type 2 diabetes mellitus without complications; I10 Essential (primary) hypertension; F17.200 Nicotine dependence, unspecified, uncomplicated; K76.9 Liver disease, unspecified; F10.10 Alcohol abuse, uncomplicated; Z79.84 Long term (current) use of oral hypoglycemic drugs; Z79.899 Other long term (current) drug therapy
CPT/HCPCS: 36415; 49083; 85025; 85610; 85730

== ENCOUNTER 2018-12-01 10:35 | Day surgery (SDC) | payer MEDICARE, MEDICAID ==
[2018-11-30 13:58] VITALS: BMI 26.6
[2018-12-01] MEDS ORDERED: Sodium Bicarbonate 2.5 MEQ/5 ML VIAL ONE (11:49)
[2018-12-01 14:56] VITALS: BP 124/71; TEMP 97.9
--- NOTE | 2018-12-01 16:12 | ULT ---
Sonographic guided paracentesis HISTORY: Recurrent ascites. FINDINGS: After explaining the procedure and answering all questions, sonographic survey shows a larg e amount of free fluid. Sterile technique, buffered local anesthesia, sonographic guidance, and a left lateral approach were used to carefully advance a 19-gauge Yueh needle and catheter into the madyson e fluid. Catheter was left to drain a total volume of 7.5 L cloudy yellow liquid. Catheter was removed with mi nimal fluid remaining. Patient tolerated the procedure well and was dismissed in good condition. IMPRESSION: Technically successful sonographic guided paracentesis.
== END 2018-12-01 12:45 | disposition home or self-care (01) ==
LOC: ULT 10:35
PROVIDERS: ATTEND Internal Medicine Gastroenterology
DX: R18.8 Other ascites (principal)
CPT/HCPCS: 49083

== ENCOUNTER 2018-12-15 11:00 | Day surgery (SDC) | payer MEDICARE, MEDICAID ==
[2018-12-14 12:37] VITALS: BMI 26.6
[2018-12-15] MEDS ORDERED: Lidocaine 1% PF 5 ML VIAL ONE (11:08)
[2018-12-15] MEDS ORDERED: Sodium Bicarbonate 2.5 MEQ/5 ML VIAL ONE (11:08)
[2018-12-15 13:00] VITALS: BP 125/70; TEMP 97.7
--- NOTE | 2018-12-15 14:14 | ULT ---
ULTRASOUND GUIDED PARACENTESIS: 12/15/18 HISTORY: Recurrent ascites. After informed consent was obtained, the patient was prepped and draped in the normal sterile fashion . Local anesthesia obtained with 1% Xylocaine mixed with sodium bicarb. A small skin incision was mad e with a #11 scalpel blade. A 6 Afghan Yueh catheter was introduced in the largest fluid collection w hich was within the left lower quadrant. Approximately 3.7 L of typical straw colored ascites was obt ained. The patient tolerated the procedure well and there are no immediate complications. IMPRESSION: Ultrasound guided paracentesis of 3.7 L of fluid. POS: [facility]
== END 2018-12-15 12:05 | disposition home or self-care (01) ==
LOC: ULT 11:00
PROVIDERS: ATTEND Internal Medicine Gastroenterology
DX: K74.60 Unspecified cirrhosis of liver (principal); R18.8 Other ascites; I10 Essential (primary) hypertension; E11.9 Type 2 diabetes mellitus without complications; K76.9 Liver disease, unspecified; Z79.899 Other long term (current) drug therapy; Z87.891 Personal history of nicotine dependence
CPT/HCPCS: 49083; J2001

== ENCOUNTER 2018-12-29 10:30 | Day surgery (SDC) | payer MEDICARE, MEDICAID ==
[2018-12-28 15:30] VITALS: BMI 26.6
[2018-12-29 10:53] LABS: #Eosinphils 0.3 thou/uL (0.0-0.7); #Lymphocytes 1.4 thou/uL (1.20-3.40); #Monocytes 0.5 thou/uL (0.11-0.59); #Neutrophils 2.8 thou/uL (1.40-6.50); %Basophils 0.9 % (0.0-1.0); %Eosinophils 5.4 % (0.0-10.0); %Lymphocytes 27.7 % (21.0-51.0); %Monocytes 9.8 % (0.0-10.0); %Neutrophils 56.2 % (42.0-75.0); Hemoglobin 14.4 g/dL (14.0-18.0); Mean Corpuscular Hemoglobin 32.5 pg (27.0-31.0); Mean Corpuscular Volume 95.8 fL (78.0-98.0); Mean Platelet Volume 6.7 fL (7.4-10.4); Platelet Count 168 thou/uL (130-400); RBC Distribution Width 13.3 % (11.5-14.5); Red Blood Cell (RBC) Count 4.42 mill/uL (4.70-6.10); White Blood Cell (WBC) Count 4.9 thou/uL (4.8-10.8)
[2018-12-29 10:55] LABS: INR-International Normal Ratio 1.1; PTT 35.5 SEC (22.9-36.1); Prothrombin Time 14.6 SEC (12.0-14.7)
[2018-12-29] MEDS ORDERED: Sodium Bicarbonate 2.5 MEQ/5 ML VIAL ONE (10:57)
[2018-12-29 12:30] VITALS: BP 118/63; TEMP 97.4
--- NOTE | 2018-12-29 14:11 | ULT ---
ULTRASOUND GUIDED PARACENTESIS: Date: 12/29/18 HISTORY: Symptomatic ascites. FINDINGS: Informed consent obtained prior to the procedure. Preprocedural imaging demonstrates significant ascites within the lower abdomen, left greater than ri ght. Skin overlying the left lower quadrant was prepped and draped in the normal sterile fashion, and anesthetized with 1% buffered lidocaine. With direct sonographic guidance, a 5 Albanian Yueh catheter was advanced into the ascites and removal of stylette yields yellow fluid. 4.7 liters were removed. The patient tolerated the procedure well. IMPRESSION: Successful ultrasound guided paracentesis, yielding 4.7 liters of yellow fluid. POS: [facility]
== END 2018-12-29 12:05 | disposition home or self-care (01) ==
LOC: ULT 10:30
PROVIDERS: ATTEND Internal Medicine Gastroenterology
PROC: 0W9G3ZZ Drainage of Peritoneal Cavity, Percutaneous Approach (ICD-10-PCS; principal; 2018-12-29)
DX: K74.60 Unspecified cirrhosis of liver (principal); R18.8 Other ascites; E11.9 Type 2 diabetes mellitus without complications; I10 Essential (primary) hypertension; F10.11 Alcohol abuse, in remission; Z87.891 Personal history of nicotine dependence; Z79.84 Long term (current) use of oral hypoglycemic drugs; Z79.899 Other long term (current) drug therapy
CPT/HCPCS: 49083; 85025; 85610; 85730

== ENCOUNTER 2019-01-12 10:50 | Day surgery (SDC) | payer MEDICARE ==
[2019-01-11 13:37] VITALS: BMI 26.6
--- NOTE | 2019-01-12 14:49 | ULT ---
Exam: Ultrasound guided paracentesis HISTORY: Ascites COMPARISON: 12/29/2018 FINDINGS: Successful ultrasound-guided paracentesis. Total of 4500 mL cloudy yellow ascites was aspir ated. TECHNIQUE: Consent obtained reformatory ultrasound-guided paracentesis. Left lower quadrantwas deemed appropriate. Skin was prepped and draped in a sterile fashion. 1% lidocaine, buffered with sodium bicarbonate was used for local anesthesia. Under ultrasound guidance, a 5 Nauruan 7 cm Chalkableeh catheter i s advanced in the peritoneal space. A total of 4500 mL cloudy yellow ascites was aspirated. No immediate or postprocedural complications IMPRESSION: Successful ultrasound-guided paracentesis.
[2019-01-12 16:06] VITALS: BP 131/74; TEMP 97.5
== END 2019-01-12 12:25 | disposition home or self-care (01) ==
LOC: ULT 10:50
PROVIDERS: ATTEND Internal Medicine Gastroenterology
DX: K74.60 Unspecified cirrhosis of liver (principal); R18.8 Other ascites; I10 Essential (primary) hypertension; E11.9 Type 2 diabetes mellitus without complications; Z79.899 Other long term (current) drug therapy; Z87.891 Personal history of nicotine dependence
CPT/HCPCS: 49083

== ENCOUNTER 2019-01-26 10:59 | Day surgery (SDC) | payer MEDICARE ==
[2019-01-25 11:00] VITALS: BMI 26.6
[2019-01-26] MEDS ORDERED: Sodium Bicarbonate 2.5 MEQ/5 ML VIAL ONE (11:04)
--- NOTE | 2019-01-26 12:28 | ULT ---
Exam: Ultrasound guided paracentesis HISTORY: Ascites COMPARISON: 01/12/2019 FINDINGS: Successful ultrasound-guided paracentesis. Total of 5100 mL of yellow color ascites was asp irated. TECHNIQUE: Consent obtained reformatory ultrasound-guided paracentesis. Right lower quadrant was deem ed appropriate. Skin was prepped and draped in a sterile fashion. 1% lidocaine, buffered with sodium bicarbonate was used for local anesthesia. Under ultrasound guidance, a 5 [place] 7 cm Yueh cat heter is advanced in the peritoneal space. A total of 5100 mL of yellow color ascites was aspirated. No immediate or postprocedural complications IMPRESSION: Successful ultrasound-guided paracentesis.
== END 2019-01-26 12:05 | disposition home or self-care (01) ==
LOC: ULT 10:59
PROVIDERS: ATTEND Internal Medicine Gastroenterology
PROC: 0W9G3ZZ Drainage of Peritoneal Cavity, Percutaneous Approach (ICD-10-PCS; principal; 2019-01-26)
DX: K74.60 Unspecified cirrhosis of liver (principal); R18.8 Other ascites; I12.9 Hypertensive chronic kidney disease with stage 1 through stage 4 chronic kidney disease, or unspecified chronic kidney disease; E11.22 Type 2 diabetes mellitus with diabetic chronic kidney disease; N18.9 Chronic kidney disease, unspecified; I25.10 Atherosclerotic heart disease of native coronary artery without angina pectoris; F17.200 Nicotine dependence, unspecified, uncomplicated; Z79.82 Long term (current) use of aspirin; Z79.899 Other long term (current) drug therapy
CPT/HCPCS: 49083

== ENCOUNTER 2019-02-09 10:56 | Day surgery (SDC) | payer MEDICARE ==
[2019-02-08 13:38] VITALS: BMI 26.6
[2019-02-09] MEDS ORDERED: Sodium Bicarbonate 2.5 MEQ/5 ML VIAL ONE (11:11)
[2019-02-09 11:13] LABS: #Eosinphils 0.3 thou/uL (0.0-0.7); #Lymphocytes 1.5 thou/uL (1.20-3.40); #Monocytes 0.6 thou/uL (0.11-0.59); #Neutrophils 2.8 thou/uL (1.40-6.50); %Basophils 0.7 % (0.0-1.0); %Eosinophils 4.9 % (0.0-10.0); %Monocytes 10.8 % (0.0-10.0); %Neutrophils 54.5 % (42.0-75.0); Hemoglobin 14.1 g/dL (14.0-18.0); Mean Corpuscular HGB CONC 34.5 g/dL (32.0-36.0); Mean Corpuscular Hemoglobin 32.7 pg (27.0-31.0); Mean Corpuscular Volume 94.9 fL (78.0-98.0); Mean Platelet Volume 6.5 fL (7.4-10.4); Platelet Count 185 thou/uL (130-400); RBC Distribution Width 13.4 % (11.5-14.5); Red Blood Cell (RBC) Count 4.31 mill/uL (4.70-6.10); White Blood Cell (WBC) Count 5.1 thou/uL (4.8-10.8)
[2019-02-09 11:15] LABS: INR-International Normal Ratio 1.2; Prothrombin Time 15.5 SEC (12.0-14.7)
[2019-02-09 12:38] VITALS: BP 129/73; TEMP 97.6
--- NOTE | 2019-02-09 13:11 | ULT ---
Sonographic guided paracentesis HISTORY: Recurrent ascites. FINDINGS: After explaining the procedure and answering all questions, sonographic survey showed a lar ge amount of free fluid throughout the abdomen. Sterile technique, buffered local anesthesia, sonographic guidance, and a right lateral approach were used to carefully advance a 19-gauge Yueh nee dle and catheter into the free fluid. The catheter was left to drain a total volume of 6.0 L cloudy yellow liquid. Minimal fluid remains. Catheter was removed. Patient tolerated the procedure well and was dismissed in good condition. IMPRESSION: Technically successful sonographic guided paracentesis.
== END 2019-02-09 12:25 | disposition home or self-care (01) ==
LOC: ULT 10:56
PROVIDERS: ATTEND Internal Medicine Gastroenterology
PROC: 0W9G3ZZ Drainage of Peritoneal Cavity, Percutaneous Approach (ICD-10-PCS; principal; 2019-02-09)
DX: K74.60 Unspecified cirrhosis of liver (principal); R18.8 Other ascites; Z79.899 Other long term (current) drug therapy
CPT/HCPCS: 36415; 49083; 85025; 85610; 85730

== ENCOUNTER 2019-02-23 11:00 | Day surgery (SDC) | payer MEDICARE ==
[2019-02-22 14:01] VITALS: BMI 25.8
[~2019-02-23 11:00] MED LIST changes: +FLU VACC QS2019-20(6MOS UP)/PF 60 MCG/0.5 ML SYRINGE IM ONE; -Iopamidol 300 61% 100 ML VIAL FS ONE
[2019-02-23] MEDS ORDERED: Sodium Bicarbonate 2.5 MEQ/5 ML VIAL ONE (11:12)
[2019-02-23 11:27] VITALS: BP 133/70; TEMP 97.5
--- NOTE | 2019-02-23 12:04 | ULT ---
PREPROCEDURE DIAGNOSIS: Ascites POST PROCEDURE DIAGNOSIS: Same PROCEDURE: Ultrasound-guided paracentesis LOOM BLOWER: Lina ANESTHESIA: 6 mL of buffered 1% lidocaine. SPECIMEN: 6 L of straw-colored fluid TECHNIQUE: Prior to the procedure, the risks and benefits of an ultrasound guided paracentesis were explained to the patient which consented fully to the procedure. The area of the largest fluid collection was seen in the left lower quadrant of the abdomen. This are a was prepped and draped in the usual sterile fashion. Lidocaine was used to anesthetize the skin and soft tissues down towards the peritoneal cavity. The p eritoneum was anesthetized. A small skin incision was made for passage of the [employer] needle and catheter. This device was then placed using ultrasound guidance into the peritoneal cavity. The needle was removed after return of fluid. The catheter was then connected to multiple Vacutainer bottles. A total of 6 L was removed. No residual fluid is seen in this region of the peritoneal cavity. IMPRESSION: Status post successful ultrasound-guided paracentesis
== END 2019-02-23 12:11 | disposition home or self-care (01) ==
LOC: ULT 11:00
PROVIDERS: ATTEND Internal Medicine Gastroenterology
PROC: 0W9G3ZZ Drainage of Peritoneal Cavity, Percutaneous Approach (ICD-10-PCS; principal; 2019-02-23)
DX: R18.8 Other ascites (principal); E11.9 Type 2 diabetes mellitus without complications; I10 Essential (primary) hypertension; Z87.891 Personal history of nicotine dependence
CPT/HCPCS: 49083

== ENCOUNTER 2019-03-09 10:50 | Day surgery (SDC) | payer MEDICARE, MEDICAID ==
[2019-03-08 14:46] VITALS: BMI 26.6
[2019-03-09] MEDS ORDERED: Sodium Bicarbonate 2.5 MEQ/5 ML VIAL ONE (11:02)
--- NOTE | 2019-03-09 12:03 | ULT ---
PREPROCEDURE DIAGNOSIS: Ascites POST PROCEDURE DIAGNOSIS: Same PROCEDURE: Ultrasound-guided paracentesis BOND UNDERWRITER: Lina ANESTHESIA: 6 mL of buffered 1% lidocaine. SPECIMEN: 6.4 L of straw-colored fluid TECHNIQUE: Prior to the procedure, the risks and benefits of an ultrasound guided paracentesis were explained to the patient which consented fully to the procedure. The area of the largest fluid collection was seen in the left lower quadrant of the abdomen. This are a was prepped and draped in the usual sterile fashion. Lidocaine was used to anesthetize the skin and soft tissues down towards the peritoneal cavity. The p eritoneum was anesthetized. A small skin incision was made for passage of the [employer]eh needle and catheter. This device was then placed using ultrasound guidance into the peritoneal cavity. The needle was removed after return of fluid. The catheter was then connected to multiple Vacutainer bottles. A total of 6.4 L was removed. No residual fluid is seen in this region of the peritoneal cavity. IMPRESSION: Status post successful ultrasound-guided paracentesis
[2019-03-09 12:45] VITALS: BP 138/78; TEMP 98.3
== END 2019-03-09 12:30 | disposition home or self-care (01) ==
LOC: ULT 10:50
PROVIDERS: ATTEND Internal Medicine Gastroenterology
PROC: 0W9G3ZZ Drainage of Peritoneal Cavity, Percutaneous Approach (ICD-10-PCS; principal; 2019-03-09)
PROC: BW40ZZZ Ultrasonography of Abdomen (ICD-10-PCS; 2019-03-09)
DX: K74.60 Unspecified cirrhosis of liver (principal); R18.8 Other ascites; E11.9 Type 2 diabetes mellitus without complications; I10 Essential (primary) hypertension; F17.200 Nicotine dependence, unspecified, uncomplicated; Z79.899 Other long term (current) drug therapy
CPT/HCPCS: 49083

== ENCOUNTER 2019-03-23 10:46 | Day surgery (SDC) | payer MEDICARE, MEDICAID ==
[2019-03-22 11:14] VITALS: BMI 26.6
[2019-03-23 11:00] LABS: #Eosinphils 0.2 thou/uL (0.0-0.7); #Lymphocytes 1.5 thou/uL (1.20-3.40); #Monocytes 0.5 thou/uL (0.11-0.59); #Neutrophils 3.5 thou/uL (1.40-6.50); %Basophils 0.5 % (0.0-1.0); %Eosinophils 4.1 % (0.0-10.0); %Lymphocytes 25.5 % (21.0-51.0); %Monocytes 8.9 % (0.0-10.0); %Neutrophils 61.1 % (42.0-75.0); Hemoglobin 13.5 g/dL (14.0-18.0); Mean Corpuscular HGB CONC 34.1 g/dL (32.0-36.0); Mean Corpuscular Hemoglobin 32.8 pg (27.0-31.0); Mean Corpuscular Volume 96.1 fL (78.0-98.0); Mean Platelet Volume 6.4 fL (7.4-10.4); Platelet Count 180 thou/uL (130-400); RBC Distribution Width 13.1 % (11.5-14.5); Red Blood Cell (RBC) Count 4.13 mill/uL (4.70-6.10); White Blood Cell (WBC) Count 5.8 thou/uL (4.8-10.8)
[2019-03-23] MEDS ORDERED: Sodium Bicarbonate 2.5 MEQ/5 ML VIAL ONE (11:06)
[2019-03-23 11:07] LABS: INR-International Normal Ratio 1.2; Prothrombin Time 15.1 SEC (12.0-14.7)
[2019-03-23 13:11] VITALS: BP 133/70; TEMP 97.8
--- NOTE | 2019-03-23 15:41 | ULT ---
Ultrasound-guided paracentesis: 03/23/2019 HISTORY: Symptomatic ascites FINDINGS: Informed consent obtained prior to the procedure. Preprocedural imaging demonstrated signif icant ascites throughout the abdomen and pelvis. Right lower quadrant prepped and draped in normal sterile fashion and anesthetized with 1% buffered l idocaine. With direct sonographic guidance, 5 Greenlandic Yueh catheter is advanced into the ascites and removal of the stylet yielded cloudy yellowfluid. 5.3 L were removed. The patient tolerated the procedure well. No postprocedural complications. IMPRESSION: Successful ultrasound-guided paracentesis yielding 5.3 L of yellow fluid.
== END 2019-03-23 12:20 | disposition home or self-care (01) ==
LOC: ULT 10:46
PROVIDERS: ATTEND Internal Medicine Gastroenterology
PROC: 0W9G3ZZ Drainage of Peritoneal Cavity, Percutaneous Approach (ICD-10-PCS; principal; 2019-03-23)
DX: K74.60 Unspecified cirrhosis of liver (principal); R18.8 Other ascites; E11.9 Type 2 diabetes mellitus without complications; I10 Essential (primary) hypertension; Z79.899 Other long term (current) drug therapy; Z87.891 Personal history of nicotine dependence
CPT/HCPCS: 36415; 49083; 85025; 85610; 85730

== ENCOUNTER 2019-04-06 10:31 | Day surgery (SDC) | payer MEDICARE, MEDICAID ==
--- NOTE | 2019-04-06 11:47 | ULT ---
PREPROCEDURE DIAGNOSIS: Ascites POST PROCEDURE DIAGNOSIS: Same PROCEDURE: Ultrasound-guided paracentesis CASING OPERATOR: Lina ANESTHESIA: 6 mL of buffered 1% lidocaine. SPECIMEN: 6 L of straw-colored fluid TECHNIQUE: Prior to the procedure, the risks and benefits of an ultrasound guided paracentesis were explained to the patient which consented fully to the procedure. The area of the largest fluid collection was seen in the right lower quadrant of the abdomen. This a oscar was prepped and draped in the usual sterile fashion. Lidocaine was used to anesthetize the skin and soft tissues down towards the peritoneal cavity. The p eritoneum was anesthetized. A small skin incision was made for passage of the alikeeh needle and catheter. This device was then placed using ultrasound guidance into the peritoneal cavity. The needle was removed after return of fluid. The catheter was then connected to multiple Vacutainer bottles. A total of 6 L was removed. No residual fluid is seen in this region of the peritoneal cavity. IMPRESSION: Status post successful ultrasound-guided paracentesis
[2019-04-06 16:55] VITALS: BP 128/67; TEMP 98
== END 2019-04-06 11:50 | disposition home or self-care (01) ==
LOC: ULT 10:31
PROVIDERS: ATTEND Internal Medicine Gastroenterology
PROC: 0W9G3ZZ Drainage of Peritoneal Cavity, Percutaneous Approach (ICD-10-PCS; principal; 2019-04-06)
DX: R18.8 Other ascites (principal)
CPT/HCPCS: 49083

== ENCOUNTER 2019-04-20 10:41 | Day surgery (SDC) | payer MEDICARE, MEDICAID ==
[2019-04-19 12:38] VITALS: BMI 26.6
--- NOTE | 2019-04-20 13:06 | ULT ---
Exam: Ultrasound guided paracentesis HISTORY: Ascites COMPARISON: 04/06/2019 FINDINGS: Successful ultrasound-guided paracentesis. Total of 6.6 L of normal appearingascites was as pirated. TECHNIQUE: Consent obtained reformatory ultrasound-guided paracentesis. Right lower quadrant was deem ed appropriate. Skin was prepped and draped in a sterile fashion. 1% lidocaine, buffered with sodium bicarbonate was used for local anesthesia. Under ultrasound guidance, a 5 Polish 7 cm Yueh cat heter is advanced in the peritoneal space. A total of 6.6 L of normal appearingascites was aspirated. No immediate or postprocedural complications IMPRESSION: Successful ultrasound-guided paracentesis.
[2019-04-20 14:35] VITALS: BP 129/66; TEMP 97.6
== END 2019-04-20 12:10 | disposition home or self-care (01) ==
LOC: ULT 10:41
PROVIDERS: ATTEND Internal Medicine Gastroenterology
PROC: 0W9G3ZZ Drainage of Peritoneal Cavity, Percutaneous Approach (ICD-10-PCS; principal; 2019-04-20)
DX: K74.60 Unspecified cirrhosis of liver (principal); R18.8 Other ascites; I10 Essential (primary) hypertension; E11.9 Type 2 diabetes mellitus without complications; F10.11 Alcohol abuse, in remission; Z87.891 Personal history of nicotine dependence; Z79.899 Other long term (current) drug therapy
CPT/HCPCS: 49083

== ENCOUNTER 2019-05-04 10:39 | Day surgery (SDC) | payer MEDICARE, MEDICAID ==
[2019-05-03 16:13] VITALS: BMI 26.6
[2019-05-04 10:42] LABS: #Eosinphils 0.2 thou/uL (0.0-0.7); #Lymphocytes 1.1 thou/uL (1.20-3.40); #Monocytes 0.3 thou/uL (0.11-0.59); #Neutrophils 2.9 thou/uL (1.40-6.50); %Eosinophils 4.6 % (0.0-10.0); %Lymphocytes 23.8 % (21.0-51.0); %Monocytes 6.6 % (0.0-10.0); Hemoglobin 14.4 g/dL (14.0-18.0); Mean Corpuscular HGB CONC 33.6 g/dL (32.0-36.0); Mean Corpuscular Hemoglobin 31.9 pg (27.0-31.0); Mean Corpuscular Volume 94.8 fL (78.0-98.0); Mean Platelet Volume 7.1 fL (7.4-10.4); Platelet Count 183 thou/uL (130-400); RBC Distribution Width 13.4 % (11.5-14.5); Red Blood Cell (RBC) Count 4.51 mill/uL (4.70-6.10); White Blood Cell (WBC) Count 4.6 thou/uL (4.8-10.8)
[2019-05-04 10:45] LABS: INR-International Normal Ratio 1.1; PTT 34.1 SEC (22.9-36.1); Prothrombin Time 14.1 SEC (12.0-14.7)
[2019-05-04 12:30] VITALS: BP 137/77; TEMP 97.9
--- NOTE | 2019-05-04 16:25 | ULT ---
US Paracentesis with Imaging History: Ascites Comparison: Paracentesis April 20, 2019 Findings: Patient was brought to the ultrasound suite. Questions were answered. Informed consent was obtained. Timeout performed. Patient's right lower quadrant was prepped and draped in normal sterile fashion. After adequate anest hesia using a 5 [place] catheter a total of 7 L of straw-colored fluid was removed. Patient tolerated the procedure well without complication. Impression: Technically successful ultrasound-guided paracentesis.
== END 2019-05-04 12:00 | disposition home or self-care (01) ==
LOC: ULT 10:39
PROVIDERS: ATTEND Internal Medicine Gastroenterology
PROC: 0W9G3ZZ Drainage of Peritoneal Cavity, Percutaneous Approach (ICD-10-PCS; principal; 2019-05-04)
DX: K74.60 Unspecified cirrhosis of liver (principal); R18.8 Other ascites; E11.9 Type 2 diabetes mellitus without complications; I10 Essential (primary) hypertension; Z87.891 Personal history of nicotine dependence; Z79.899 Other long term (current) drug therapy
CPT/HCPCS: 49083; 85025; 85610; 85730

== ENCOUNTER 2019-05-18 10:37 | Day surgery (SDC) | payer MEDICARE, MEDICAID ==
[2019-05-17 11:58] VITALS: BMI 26.6
[2019-05-18 11:06] LABS: ALT (SGPT) 16 U/L (8-55); AST (SGOT) 32 U/L (5-34); Albumin 2.8 g/dL (3.4-4.8); Alkaline Phosphatase 93 U/L (40-110); Anion Gap 9 mmol/L (10-20); BUN (Urea Nitrogen) 15 mg/dL (8.4-25.7); Bilirubin, Total 1.3 mg/dL (0.2-1.2); Calc. Creatinine Clearance 90 mL/min (70-130); Calcium 8.5 mg/dL (7.8-10.44); Carbon Dioxide 28 mmol/L (23-31); Chloride 105 mmol/L (98-107); Estimated GFR-MDRD 86; Globulin 3.8 g/dL (2.4-3.5); Glucose 230 mg/dL (80-115); Potassium 3.7 mmol/L (3.5-5.1); Protein, Total 6.6 g/dL (5.8-8.1); Sodium 138 mmol/L (136-145)
[2019-05-18] MEDS ORDERED: Sodium Bicarbonate 2.5 MEQ/5 ML VIAL ONE (11:45)
[2019-05-18 13:15] VITALS: BP 136/77; TEMP 97.8
--- NOTE | 2019-05-18 14:55 | ULT ---
Sonographic guided paracentesis HISTORY: Recurrent ascites. FINDINGS: After explaining the procedure and answering all questions, sonographic survey shows a larg e amount of free fluid throughout the abdomen. Sterile technique, buffered local anesthesia, sonographic guidance, and a left lower quadrant approach were used to carefully advance a 19-gauge Stokes eh needle and catheter into the free fluid. Catheter was left to drain a total volume of 9.7 L cloudy white liquid. Minimal fluid remains. Catheter was removed. Patient tolerated the procedure wel l and was dismissed in good condition. IMPRESSION: Technically successful sonographic guided paracentesis.
== END 2019-05-18 12:45 | disposition home or self-care (01) ==
LOC: ULT 10:37
PROVIDERS: ATTEND Internal Medicine Gastroenterology
PROC: 0W9G3ZZ Drainage of Peritoneal Cavity, Percutaneous Approach (ICD-10-PCS; principal; 2019-05-18)
DX: K74.60 Unspecified cirrhosis of liver (principal); R18.8 Other ascites; E11.9 Type 2 diabetes mellitus without complications; I10 Essential (primary) hypertension; F10.11 Alcohol abuse, in remission; Z87.891 Personal history of nicotine dependence; Z79.899 Other long term (current) drug therapy
CPT/HCPCS: 36415; 49083; 80053; 82105

== ENCOUNTER 2019-06-01 08:54 | Day surgery (SDC) | payer MEDICARE, MEDICAID ==
[2019-05-31 12:19] VITALS: BMI 26.6
[2019-06-01] MEDS ORDERED: Lidocaine 1% PF 5 ML VIAL ONE (10:44)
--- NOTE | 2019-06-01 11:32 | ULT ---
Ultrasound-guided paracentesis: 06/01/2019 HISTORY: Symptomatic ascites FINDINGS: Informed consent obtained prior to the procedure. Preprocedural imaging demonstrated signif icant ascites throughout the abdomen and pelvis. Left lower quadrantprepped and draped in normal sterile fashion and anesthetized with 1% buffered lid ocaine. With direct sonographic guidance, 5 Bots[place]an Yueh catheter is advanced into the ascites and removal of the stylet yielded cloudy yellowfluid. 7.5 L were removed. The patient tolerated the procedure well. No postprocedural complications. IMPRESSION: Successful ultrasound-guided paracentesis yielding 7.5 L of cloudy yellow fluid.
--- NOTE | 2019-06-01 11:51 | CT ---
CT OF ABDOMEN PERFORMED WITH AND WITHOUT CONTRAST ENHANCEMENT WITH 3 PHASE IMAGING: HISTORY: Abdominal distension, ascites, hepatic encephalopathy, cirrhosis of liver, history of appendectomy. COMPARISON: 10/01/2018 exam. FINDINGS: The lung bases show some chronic-appearing atelectatic change within the left base. The liver is sma ll consistent with patient's history. No focal masses are identified. The spleen is approximately 1 3 cm in length. The pancreas region appears unremarkable. The question was raised of some thrombus within the portal vein on the prior examination. The main portal vein is small. There is a question able small focus of decreased attenuation, potentially some minimal partial thrombus. Right and left adrenal glands and right and left kidneys are normal in size. Marked ascites is noted , similar to the previous exam. IMPRESSION: 1. Post cholecystectomy change. 2. Small liver similar in appearance to the previous exam with some mild splenomegaly. 3. Large volume ascites. 4. Stable overall study. POS: JANNIE
[2019-06-01 12:43] VITALS: BP 140/82; TEMP 97.5
== END 2019-06-01 11:45 | disposition home or self-care (01) ==
LOC: ULT 08:54 → CT 11:45
PROVIDERS: ATTEND Internal Medicine Gastroenterology
PROC: 0W9G3ZZ Drainage of Peritoneal Cavity, Percutaneous Approach (ICD-10-PCS; principal; 2019-06-01)
DX: K74.60 Unspecified cirrhosis of liver (principal); R18.8 Other ascites; K72.90 Hepatic failure, unspecified without coma; E11.9 Type 2 diabetes mellitus without complications; I10 Essential (primary) hypertension; Z87.891 Personal history of nicotine dependence; Z79.899 Other long term (current) drug therapy
CPT/HCPCS: 49083; 74170; J2001

== ENCOUNTER 2019-06-15 10:11 | Day surgery (SDC) | payer MEDICARE, MEDICAID ==
[2019-06-14 13:26] VITALS: BMI 26.6
[2019-06-15 10:18] LABS: #Eosinphils 0.2 thou/uL (0.0-0.7); #Monocytes 0.5 thou/uL (0.11-0.59); #Neutrophils 2.5 thou/uL (1.40-6.50); %Basophils 0.5 % (0.0-1.0); %Eosinophils 4.8 % (0.0-10.0); %Lymphocytes 23.9 % (21.0-51.0); %Monocytes 11.7 % (0.0-10.0); %Neutrophils 59.1 % (42.0-75.0); Hemoglobin 14.3 g/dL (14.0-18.0); Mean Corpuscular HGB CONC 34.3 g/dL (32.0-36.0); Mean Corpuscular Hemoglobin 33.4 pg (27.0-31.0); Mean Corpuscular Volume 97.3 fL (78.0-98.0); Mean Platelet Volume 6.6 fL (7.4-10.4); Platelet Count 173 thou/uL (130-400); RBC Distribution Width 13.4 % (11.5-14.5); Red Blood Cell (RBC) Count 4.28 mill/uL (4.70-6.10); White Blood Cell (WBC) Count 4.3 thou/uL (4.8-10.8)
[2019-06-15] MEDS ORDERED: Sodium Bicarbonate 2.5 MEQ/5 ML VIAL ONE (10:23)
[2019-06-15] MEDS ORDERED: Lidocaine 1% PF 5 ML VIAL ONE (10:23)
[2019-06-15 10:25] LABS: INR-International Normal Ratio 1.1; PTT 33.7 SEC (22.9-36.1); Prothrombin Time 14.3 SEC (12.0-14.7)
--- NOTE | 2019-06-15 11:38 | ULT ---
Ultrasound-guided paracentesis: HISTORY: Cirrhosis and ascites FINDINGS: Informed consent obtained prior to the procedure. Preprocedural imaging demonstrated intrap eritoneal free fluid. An area was marked in the right mid abdomen in the mid axillary line, and then meticulously prepped a nd draped in normal sterile fashion and anesthetized with 1% buffered lidocaine. With direct sonographic guidance, a 19-gauge needle and 5 [place]an Yueh catheter were advanced into the abdomen. After the return of fluid, the catheter was advanced, and the needle was removed. Approximately 6 L of cloudy yellow-colored fluid was aspirated. The introducer sheath was removed, an d hemostasis was achieved with direct pressure. A dry sterile dressing was placed. The patient tolerated the procedure well and without immediate complication. IMPRESSION: Technically successful ultrasound-guided paracentesis. 6 L of cloudy yellow fluid was aspirated. A mo derate amount of ascites persists after paracentesis.
[2019-06-15 11:43] VITALS: BP 147/78; TEMP 97.5
== END 2019-06-15 11:25 | disposition home or self-care (01) ==
LOC: ULT 10:11
PROVIDERS: ATTEND Internal Medicine Gastroenterology
PROC: 0W9G3ZZ Drainage of Peritoneal Cavity, Percutaneous Approach (ICD-10-PCS; principal; 2019-06-15)
DX: K74.60 Unspecified cirrhosis of liver (principal); R18.8 Other ascites; K72.90 Hepatic failure, unspecified without coma; E11.9 Type 2 diabetes mellitus without complications; I10 Essential (primary) hypertension; F10.11 Alcohol abuse, in remission; Z87.891 Personal history of nicotine dependence; Z79.899 Other long term (current) drug therapy
CPT/HCPCS: 36415; 49083; 85025; 85610; 85730; J2001

== ENCOUNTER 2019-06-29 10:34 | Day surgery (SDC) | payer MEDICARE, MEDICAID ==
[2019-06-28 15:50] VITALS: BMI 26.6
[2019-06-29] MEDS ORDERED: Sodium Bicarbonate 2.5 MEQ/5 ML VIAL ONE (10:57)
[2019-06-29] MEDS ORDERED: Lidocaine 1% PF 5 ML VIAL ONE (11:24)
--- NOTE | 2019-06-29 13:06 | ULT ---
Exam: Ultrasound guided paracentesis HISTORY: Ascites COMPARISON: 04/14/2020 FINDINGS: Successful ultrasound-guided paracentesis. Total of 8 L of milky ascites was aspirated. TECHNIQUE: Consent obtained reformatory ultrasound-guided paracentesis. Left lower quadrantwas deemed appropriate. Skin was prepped and draped in a sterile fashion. 1% lidocaine, buffered with sodium bicarbonate was used for local anesthesia. Under ultrasound guidance, a 5 Latvian 7 cm kalideaeh catheter i s advanced in the peritoneal space. A total of 8 L of milky ascites was aspirated. No immediate or postprocedural complications IMPRESSION: Successful ultrasound-guided paracentesis.
== END 2019-06-29 12:00 | disposition home or self-care (01) ==
LOC: ULT 10:34
PROVIDERS: ATTEND Internal Medicine Gastroenterology
PROC: 0W9G3ZZ Drainage of Peritoneal Cavity, Percutaneous Approach (ICD-10-PCS; principal; 2019-06-29)
DX: K74.60 Unspecified cirrhosis of liver (principal); R18.8 Other ascites; I10 Essential (primary) hypertension; E11.9 Type 2 diabetes mellitus without complications; F17.200 Nicotine dependence, unspecified, uncomplicated; Z79.899 Other long term (current) drug therapy
CPT/HCPCS: 49083; J2001

== ENCOUNTER 2019-07-13 10:12 | Day surgery (SDC) | payer MEDICARE, MEDICAID ==
[2019-07-12 13:55] VITALS: BMI 26.6
[2019-07-13] MEDS ORDERED: Sodium Bicarbonate 2.5 MEQ/5 ML VIAL ONE (11:02)
[2019-07-13] MEDS ORDERED: Lidocaine 1% PF 5 ML VIAL ONE (11:02)
[2019-07-13 12:46] VITALS: TEMP 98.1
--- NOTE | 2019-07-13 14:51 | ULT ---
Sonographic guided paracentesis HISTORY: Recurrent ascites. FINDINGS: After expected procedure and answering all questions, sonographic survey shows a large amou nt of free fluid. Sterile technique, buffered local anesthesia, sonographic guidance, and a right lateral approach were used to carefully advance a 19-gauge Yueh needle and catheter into the free flu id. Catheter was left to drain a total volume of 9.6 L cloudy yellow liquid. Catheter was removed with small amount of fluid remaining. Patient tolerated the procedure well and was dismissed in good condition. IMPRESSION: Technically successful sonographic guided large volume paracentesis.
== END 2019-07-13 12:15 | disposition home or self-care (01) ==
LOC: ULT 10:12
PROVIDERS: ATTEND Internal Medicine Gastroenterology
PROC: 0W9G3ZZ Drainage of Peritoneal Cavity, Percutaneous Approach (ICD-10-PCS; principal; 2019-07-13)
DX: K74.60 Unspecified cirrhosis of liver (principal); R18.8 Other ascites; E11.9 Type 2 diabetes mellitus without complications; K76.0 Fatty (change of) liver, not elsewhere classified; I10 Essential (primary) hypertension; Z98.890 Other specified postprocedural states; Z90.49 Acquired absence of other specified parts of digestive tract; Z79.899 Other long term (current) drug therapy; Z87.891 Personal history of nicotine dependence
CPT/HCPCS: 49083; J2001

== ENCOUNTER 2019-07-27 10:20 | Day surgery (SDC) | payer MEDICARE, MEDICAID ==
[2019-07-26 09:00] VITALS: BMI 26.6
[~2019-07-27 10:20] MED LIST changes: -FLU VACC QS2019-20(6MOS UP)/PF 60 MCG/0.5 ML SYRINGE IM ONE; +Lidocaine 1% PF 5 ML VIAL ONE; +Sodium Bicarbonate 2.5 MEQ/5 ML VIAL ONE
[2019-07-27 10:39] LABS: #Basophils 0.1 thou/uL (0.0-0.2); #Eosinphils 0.2 thou/uL (0.0-0.7); #Lymphocytes 1.4 thou/uL (1.20-3.40); #Monocytes 0.5 thou/uL (0.11-0.59); #Neutrophils 2.9 thou/uL (1.40-6.50); %Basophils 1.1 % (0.0-1.0); %Eosinophils 3.4 % (0.0-10.0); %Lymphocytes 27.2 % (21.0-51.0); %Monocytes 9.8 % (0.0-10.0); %Neutrophils 58.6 % (42.0-75.0); Hemoglobin 13.4 g/dL (14.0-18.0); Mean Corpuscular HGB CONC 33.7 g/dL (32.0-36.0); Mean Corpuscular Hemoglobin 32.6 pg (27.0-31.0); Mean Corpuscular Volume 96.8 fL (78.0-98.0); Mean Platelet Volume 6.4 fL (7.4-10.4); Platelet Count 171 thou/uL (130-400); RBC Distribution Width 13.3 % (11.5-14.5); Red Blood Cell (RBC) Count 4.12 mill/uL (4.70-6.10)
[2019-07-27 10:46] LABS: INR-International Normal Ratio 1.2; Prothrombin Time 15.4 SEC (12.0-14.7)
[2019-07-27 10:47] LABS: PTT 36.5 SEC (22.9-36.1)
[2019-07-27 12:05] VITALS: BP 130/67; TEMP 97.4
--- NOTE | 2019-07-27 12:33 | ULT ---
Sonographic guided paracentesis HISTORY: Recurrent ascites. FINDINGS: After explaining the procedure and answering all questions, sonographic survey shows a larg e amount of free fluid throughout the abdomen. Sterile technique, buffered local anesthesia, sonographic guidance, and a left lateral approach were used to carefully advance a 19-gauge Yueh need le and catheter into the free fluid. Catheter was left to drain a total volume of 8.0 L cloudy yellow-white liquid. Catheter was removed with small amount of fluid remaining. Patient tolerated the procedure well and was dismissed in good condition. IMPRESSION : Technically successful sonographic guided paracentesis. 8.0 L.
== END 2019-07-27 11:55 | disposition home or self-care (01) ==
LOC: ULT 10:20
PROVIDERS: ATTEND Internal Medicine Gastroenterology
PROC: 0W9G3ZZ Drainage of Peritoneal Cavity, Percutaneous Approach (ICD-10-PCS; principal; 2019-07-27)
DX: K74.60 Unspecified cirrhosis of liver (principal); R18.8 Other ascites; E11.9 Type 2 diabetes mellitus without complications; I10 Essential (primary) hypertension; F10.11 Alcohol abuse, in remission; Z87.891 Personal history of nicotine dependence; Z79.899 Other long term (current) drug therapy
CPT/HCPCS: 36415; 49083; 85025; 85610; 85730; J2001

== ENCOUNTER 2019-08-13 07:47 | Day surgery (SDC) | payer MEDICARE, MEDICAID ==
[2019-08-09 10:20] VITALS: BMI 26.6
[2019-08-13] MEDS ORDERED: Lidocaine 1% PF 5 ML VIAL ONE (08:20)
[2019-08-13] MEDS ORDERED: Sodium Bicarbonate 2.5 MEQ/5 ML VIAL ONE (08:20)
--- NOTE | 2019-08-13 09:13 | ULT ---
Exam: Ultrasound guided paracentesis HISTORY: Ascites COMPARISON: 07/27/2019 FINDINGS: Successful ultrasound-guided paracentesis. Total of 9 L of cloudy ascites was aspirated. TECHNIQUE: Consent obtained reformatory ultrasound-guided paracentesis. Left lower quadrantwas deemed appropriate. Skin was prepped and draped in a sterile fashion. 1% lidocaine, buffered with sodium bicarbonate was used for local anesthesia. Under ultrasound guidance, a 5 Kyrgyz 7 cm [employer] catheter i s advanced in the peritoneal space. A total of 9 L of cloudy ascites was aspirated. No immediate or postprocedural complications IMPRESSION: Successful ultrasound-guided paracentesis.
[2019-08-13 09:23] VITALS: BP 119/62; TEMP 97.7
== END 2019-08-13 09:10 | disposition home or self-care (01) ==
LOC: ULT 07:47
PROVIDERS: ATTEND Internal Medicine Gastroenterology
PROC: 0W9G3ZZ Drainage of Peritoneal Cavity, Percutaneous Approach (ICD-10-PCS; principal; 2019-08-13)
DX: K74.60 Unspecified cirrhosis of liver (principal); R18.8 Other ascites; I10 Essential (primary) hypertension; E11.9 Type 2 diabetes mellitus without complications; F10.10 Alcohol abuse, uncomplicated; F17.200 Nicotine dependence, unspecified, uncomplicated
CPT/HCPCS: 49083; J2001

== ENCOUNTER 2019-08-24 10:16 | Day surgery (SDC) | payer MEDICARE, MEDICAID ==
[2019-08-23 11:03] VITALS: BMI 26.6
[2019-08-24 10:35] LABS: #Eosinphils 0.2 thou/uL (0.0-0.7); #Lymphocytes 1.2 thou/uL (1.20-3.40); #Monocytes 0.5 thou/uL (0.11-0.59); #Neutrophils 2.9 thou/uL (1.40-6.50); %Basophils 0.7 % (0.0-1.0); %Eosinophils 4.7 % (0.0-10.0); %Lymphocytes 25.4 % (21.0-51.0); %Monocytes 9.4 % (0.0-10.0); %Neutrophils 59.7 % (42.0-75.0); Hemoglobin 14.3 g/dL (14.0-18.0); Mean Corpuscular HGB CONC 33.3 g/dL (32.0-36.0); Mean Corpuscular Hemoglobin 32.4 pg (27.0-31.0); Mean Corpuscular Volume 97.2 fL (78.0-98.0); Mean Platelet Volume 6.9 fL (7.4-10.4); Platelet Count 163 thou/uL (130-400); RBC Distribution Width 13.7 % (11.5-14.5); White Blood Cell (WBC) Count 4.9 thou/uL (4.8-10.8)
[2019-08-24] MEDS ORDERED: Sodium Bicarbonate 2.5 MEQ/5 ML VIAL ONE (11:11)
[2019-08-24] MEDS ORDERED: Lidocaine 1% PF 5 ML VIAL ONE (11:11)
--- NOTE | 2019-08-24 12:19 | ULT ---
Sonographic guided paracentesis HISTORY: Recurrent ascites. FINDINGS: After explaining the procedure and answering all questions, sonographic survey shows a larg e amount of free fluid throughout the abdomen. Sterile technique, buffered local anesthesia, sonographic guidance, and a left lateral approach were used to carefully advance a 19-gauge Yueh needle and catheter into the free fluid. Catheter was left to drain a total volume of 9.0 L cloudy white liquid. Catheter was removed with small amount of fluid remaining. Patient tolerated the procedure well and was dismissed in good condition. IMPRESSION : Technically successful sonographic guided paracentesis.
[2019-08-24 12:42] LABS: INR-International Normal Ratio 1.1; PTT 35.1 SEC (22.9-36.1); Prothrombin Time 14.6 SEC (12.0-14.7)
[2019-08-24 13:10] VITALS: BP 122/49; TEMP 97.7
== END 2019-08-24 12:05 | disposition home or self-care (01) ==
LOC: ULT 10:16
PROVIDERS: ATTEND Internal Medicine Gastroenterology
PROC: 0W9G3ZZ Drainage of Peritoneal Cavity, Percutaneous Approach (ICD-10-PCS; principal; 2019-08-24)
DX: K74.60 Unspecified cirrhosis of liver (principal); R18.8 Other ascites; K72.90 Hepatic failure, unspecified without coma; E11.9 Type 2 diabetes mellitus without complications; I10 Essential (primary) hypertension; F10.11 Alcohol abuse, in remission; Z87.891 Personal history of nicotine dependence; Z79.899 Other long term (current) drug therapy
CPT/HCPCS: 49083; 85025; 85610; 85730; J2001; 36415

== ENCOUNTER 2019-09-07 10:37 | Day surgery (SDC) | payer MEDICARE, MEDICAID ==
[2019-09-06 15:28] VITALS: BMI 26.6
[2019-09-07] MEDS ORDERED: Sodium Bicarbonate 2.5 MEQ/5 ML VIAL ONE (11:09)
[2019-09-07] MEDS ORDERED: Lidocaine 1% PF 5 ML VIAL ONE (11:09)
--- NOTE | 2019-09-07 12:30 | ULT ---
Ultrasound-guided paracentesis: HISTORY: Cirrhosis and recurrent ascites. FINDINGS: Informed consent obtained prior to the procedure. Preprocedural imaging demonstrated intrap eritoneal free fluid. An area was marked in the right mid abdomen in the mid axillary line, and then meticulously prepped a nd draped in normal sterile fashion and anesthetized with 1% buffered lidocaine. With direct sonographic guidance, a 19-gauge needle and 5 [place] Yueh catheter were advanced into the abdomen. After the return of fluid, the catheter was advanced, and the needle was removed. Approximately 6 L of cloudy slightly yellow-colored fluid was aspirated. The introducer sheath was re moved, and hemostasis was achieved with direct pressure. A dry sterile dressing was placed. The patient tolerated the procedure well and without immediate complication. IMPRESSION: Technically successful ultrasound-guided paracentesis.
[2019-09-07 12:31] VITALS: BP 126/68; TEMP 98
== END 2019-09-07 12:10 | disposition home or self-care (01) ==
LOC: ULT 10:37
PROVIDERS: ATTEND Internal Medicine Gastroenterology
PROC: 0W9G3ZZ Drainage of Peritoneal Cavity, Percutaneous Approach (ICD-10-PCS; principal; 2019-09-07)
DX: K74.60 Unspecified cirrhosis of liver (principal); R18.8 Other ascites; E11.9 Type 2 diabetes mellitus without complications; I10 Essential (primary) hypertension; F17.200 Nicotine dependence, unspecified, uncomplicated; Z79.899 Other long term (current) drug therapy
CPT/HCPCS: 49083; J2001

== ENCOUNTER 2019-09-21 10:58 | Day surgery (SDC) | payer MEDICARE, MEDICAID ==
[2019-09-20 14:42] VITALS: BMI 26.6
[2019-09-21] MEDS ORDERED: Albumin 25% 200 ML ONE (11:17)
[2019-09-21] MEDS ORDERED: Sodium Bicarbonate 2.5 MEQ/5 ML VIAL ONE (11:17)
[2019-09-21] MEDS ORDERED: Lidocaine 1% PF 5 ML VIAL ONE (11:18)
[2019-09-21 13:10] VITALS: BP 129/68; TEMP 97.9
--- NOTE | 2019-09-21 13:24 | ULT ---
Exam: Ultrasound guided paracentesis HISTORY: Ascites COMPARISON: 09/07/2019 FINDINGS: Successful ultrasound-guided paracentesis. Total of 7 L of cloudy yellow color ascites was aspirated. TECHNIQUE: Consent obtained reformatory ultrasound-guided paracentesis. Right lower quadrant was deem ed appropriate. Skin was prepped and draped in a sterile fashion. 1% lidocaine, buffered with sodium bicarbonate was used for local anesthesia. Under ultrasound guidance, a 5 English 7 cm Yueh cat heter is advanced in the peritoneal space. A total of 7 L of cloudy yellow color ascites was aspirated. No immediate or postprocedural complications IMPRESSION: Successful ultrasound-guided paracentesis.
== END 2019-09-21 12:45 | disposition home or self-care (01) ==
LOC: ULT 10:58
PROVIDERS: ATTEND Internal Medicine Gastroenterology
PROC: 0W9G3ZZ Drainage of Peritoneal Cavity, Percutaneous Approach (ICD-10-PCS; principal; 2019-09-21)
DX: K74.60 Unspecified cirrhosis of liver (principal); R18.8 Other ascites; I10 Essential (primary) hypertension; E11.9 Type 2 diabetes mellitus without complications; F10.11 Alcohol abuse, in remission; Z87.891 Personal history of nicotine dependence; Z79.899 Other long term (current) drug therapy
CPT/HCPCS: 49083; P9047; J2001

== ENCOUNTER 2019-10-05 10:32 | Day surgery (SDC) | payer MEDICARE, MEDICAID ==
[2019-10-04 15:47] VITALS: BMI 26.6
[2019-10-05 10:46] LABS: #Eosinphils 0.3 thou/uL (0.0-0.7); #Lymphocytes 1.3 thou/uL (1.20-3.40); #Monocytes 0.5 thou/uL (0.11-0.59); #Neutrophils 2.8 thou/uL (1.40-6.50); %Basophils 0.8 % (0.0-1.0); %Eosinophils 5.9 % (0.0-10.0); %Lymphocytes 25.4 % (21.0-51.0); %Monocytes 10.7 % (0.0-10.0); %Neutrophils 57.2 % (42.0-75.0); Mean Corpuscular HGB CONC 33.3 g/dL (32.0-36.0); Mean Corpuscular Hemoglobin 32.3 pg (27.0-31.0); Mean Platelet Volume 6.7 fL (7.4-10.4); Platelet Count 169 thou/uL (130-400); RBC Distribution Width 13.6 % (11.5-14.5); Red Blood Cell (RBC) Count 4.33 mill/uL (4.70-6.10)
[2019-10-05] MEDS ORDERED: Sodium Bicarbonate 2.5 MEQ/5 ML VIAL ONE (10:50)
[2019-10-05] MEDS ORDERED: Lidocaine 1% PF 5 ML VIAL ONE (10:50)
[2019-10-05 11:01] LABS: INR-International Normal Ratio 1.1; PTT 34.8 sec (22.9-36.1); Prothrombin Time 14.5 sec (12.0-14.7)
[2019-10-05 12:22] VITALS: BP 127/67; TEMP 98.1
--- NOTE | 2019-10-05 13:08 | ULT ---
Ultrasound-guided paracentesis: HISTORY: Cirrhosis and recurrent ascites FINDINGS: Informed consent obtained prior to the procedure. Preprocedural imaging demonstrated intrap eritoneal free fluid. An area was marked in the left lower quadrant, and then meticulously prepped and draped in normal eder rile fashion and anesthetized with 1% buffered lidocaine. With direct sonographic guidance, a 19-gauge needle and 5 Montenegrin Yueh catheter were advanced into the abdomen. After the return of fluid, the catheter was advanced, and the needle was removed. Approximately 6.9 L of cloudy milky white fluid was aspirated. The introducer sheath was removed, and hemostasis was achieved with direct pressure. A dry sterile dressing was placed. The patient tolerated the procedure well and without immediate complication. IMPRESSION: Technically successful ultrasound-guided paracentesis.
[2019-10-05] MEDS ORDERED: Albumin 25% 200 ML ONE (14:36)
== END 2019-10-05 11:55 | disposition home or self-care (01) ==
LOC: ULT 10:32
PROVIDERS: ATTEND Internal Medicine Gastroenterology
PROC: 0W9G3ZZ Drainage of Peritoneal Cavity, Percutaneous Approach (ICD-10-PCS; principal; 2019-10-05)
DX: K74.60 Unspecified cirrhosis of liver (principal); R18.8 Other ascites; Z79.899 Other long term (current) drug therapy
CPT/HCPCS: 49083; 85025; 85610; 85730; P9047; 36415; J2001

== ENCOUNTER 2019-10-19 10:03 | Day surgery (SDC) | payer MEDICARE, MEDICAID ==
[2019-10-19 08:52] VITALS: BMI 26.6
[2019-10-19] MEDS ORDERED: Albumin 25% 200 ML ONE (10:07)
[2019-10-19] MEDS ORDERED: Lidocaine 1% PF 5 ML VIAL ONE (10:07)
[2019-10-19] MEDS ORDERED: Sodium Bicarbonate 2.5 MEQ/5 ML VIAL ONE (10:07)
[2019-10-19] MEDS ORDERED: Sodium Chloride 0.9% 10 ML ONE (10:27)
--- NOTE | 2019-10-19 11:17 | ULT ---
Exam: Ultrasound guided paracentesis HISTORY: Ascites COMPARISON: 10/05/2019 FINDINGS: Successful ultrasound-guided paracentesis. Total of 6800 mL of cloudy ascites was aspirated . TECHNIQUE: Consent obtained reformatory ultrasound-guided paracentesis. Left lower quadrantwas deemed appropriate. Skin was prepped and draped in a sterile fashion. 1% lidocaine, buffered with sodium bicarbonate was used for local anesthesia. Under ultrasound guidance, a 5 Welsh 7 cm i-dispo.comeh catheter i s advanced in the peritoneal space. A total of 6800 mL of cloudy ascites was aspirated. No immediate or postprocedural complications IMPRESSION: Successful ultrasound-guided paracentesis.
[2019-10-19 12:11] VITALS: BP 129/66; TEMP 97.6
== END 2019-10-19 11:25 | disposition home or self-care (01) ==
LOC: ULT 10:03
PROVIDERS: ATTEND Internal Medicine Gastroenterology
PROC: 0W9G3ZZ Drainage of Peritoneal Cavity, Percutaneous Approach (ICD-10-PCS; principal; 2019-10-19)
DX: K74.60 Unspecified cirrhosis of liver (principal); R18.8 Other ascites; E11.9 Type 2 diabetes mellitus without complications; I10 Essential (primary) hypertension; F17.200 Nicotine dependence, unspecified, uncomplicated
CPT/HCPCS: 49083; P9047; J2001

== ENCOUNTER 2019-11-01 08:41 | Day surgery (SDC) | payer MEDICARE, MEDICAID ==
[2019-10-31 07:52] VITALS: BMI 26.6
[2019-11-01] MEDS ORDERED: Albumin 25% 200 ML ONE (10:25)
[2019-11-01] MEDS ORDERED: Sodium Bicarbonate 2.5 MEQ/5 ML VIAL ONE (10:25)
[2019-11-01] MEDS ORDERED: Lidocaine 1% PF 5 ML VIAL ONE (10:25)
[2019-11-01 11:55] VITALS: BP 118/59; TEMP 97.6
--- NOTE | 2019-11-01 12:27 | ULT ---
Sonographic guided paracentesis HISTORY: Recurrent ascites. FINDINGS: After explaining the procedure and answering all questions, limited sonographic survey show s large amount of free fluid throughout the abdomen. Sterile technique, buffered local anesthesia, sonographic guidance, and a left lateral approach were used to carefully advance a 19-gauge Yueh needle and catheter into the free fluid. Catheter was left to drain a total volume of 3.9 L cloudy yellow liquid. Catheter was removed with minimal fluid remaining. Patient tolerated the procedure well and was dismi ssed in good condition. IMPRESSION : Technically successful sonographic guided paracentesis.
== END 2019-11-01 11:15 | disposition home or self-care (01) ==
LOC: ULT 08:41
PROVIDERS: ATTEND Internal Medicine Gastroenterology
PROC: 0W9G3ZZ Drainage of Peritoneal Cavity, Percutaneous Approach (ICD-10-PCS; principal; 2019-11-01)
DX: K74.60 Unspecified cirrhosis of liver (principal); R18.8 Other ascites; K72.90 Hepatic failure, unspecified without coma; E11.9 Type 2 diabetes mellitus without complications; I10 Essential (primary) hypertension; F10.10 Alcohol abuse, uncomplicated; F17.200 Nicotine dependence, unspecified, uncomplicated; Z79.899 Other long term (current) drug therapy
CPT/HCPCS: 49083; P9047; J2001

== ENCOUNTER 2019-11-30 11:04 | Day surgery (SDC) | payer MEDICARE, MEDICAID ==
[2019-11-29 11:43] VITALS: BMI 26.6
--- NOTE | 2019-11-30 11:57 | ULT ---
Sonogram abdomen limited HISTORY: Recurrent ascites. FINDINGS: Exam was initially scheduled as a routine sonographic guided paracentesis. Sonographic survey showed only a small to moderate amount of free fluid within the abdomen. This was discussed with the patient. He reports significantly less discomfort than usual and chooses to forego the current paracentesis. He will be scheduled for a sonographic guided paracentesis in one we ek and will communicate with our nursing personnel as to whether he feels it is needed. IMPRESSION : Much less ascites than usual. Paracentesis not performed.
== END 2019-11-30 11:45 | disposition home or self-care (01) ==
LOC: ULT 11:04
PROVIDERS: ATTEND Internal Medicine Gastroenterology
DX: K74.60 Unspecified cirrhosis of liver (principal); R18.8 Other ascites; K72.90 Hepatic failure, unspecified without coma; E11.9 Type 2 diabetes mellitus without complications; K76.0 Fatty (change of) liver, not elsewhere classified; I10 Essential (primary) hypertension; F10.11 Alcohol abuse, in remission; Z87.891 Personal history of nicotine dependence; Z79.899 Other long term (current) drug therapy
CPT/HCPCS: 76705

== ENCOUNTER 2019-12-28 10:49 | Day surgery (SDC) | payer MEDICARE, MEDICAID ==
[2019-12-27 13:22] VITALS: BMI 26.6
[2019-12-28 10:52] LABS: #Basophils 0.1 thou/uL (0.0-0.2); #Eosinphils 0.3 thou/uL (0.0-0.7); #Lymphocytes 1.3 thou/uL (1.20-3.40); #Monocytes 0.5 thou/uL (0.11-0.59); #Neutrophils 2.9 thou/uL (1.40-6.50); %Basophils 1.2 % (0.0-1.0); %Eosinophils 5.3 % (0.0-10.0); %Lymphocytes 25.6 % (21.0-51.0); %Monocytes 10.6 % (0.0-10.0); %Neutrophils 57.4 % (42.0-75.0); Hemoglobin 13.5 g/dL (14.0-18.0); Mean Corpuscular HGB CONC 34.4 g/dL (32.0-36.0); Mean Corpuscular Hemoglobin 33.5 pg (27.0-31.0); Mean Corpuscular Volume 97.5 fL (78.0-98.0); Mean Platelet Volume 7.4 fL (7.4-10.4); Platelet Count 143 thou/uL (130-400); RBC Distribution Width 13.8 % (11.5-14.5); Red Blood Cell (RBC) Count 4.04 mill/uL (4.70-6.10); White Blood Cell (WBC) Count 5.1 thou/uL (4.8-10.8)
[2019-12-28 11:01] LABS: INR-International Normal Ratio 1.2; Prothrombin Time 15.4 sec (12.0-14.7)
--- NOTE | 2019-12-28 11:31 | ULT ---
Ultrasound abdomen limited: 12/28/2019 HISTORY: 64-year-old male with ascites presents for ultrasound-guided therapeutic paracentesis. He states that he does feel excessively fall, and is not in significant discomfort. He was given the option to either have the paracentesis performed today or postpone it for 2 weeks later. He does not mind driving from [place]. He chose the latter option. COMPARISON: 12/14/2019 TECHNIQUE: Four-quadrant survey of abdominal cavity. FINDINGS: There is a small amount of free fluid in the peritoneal cavity, but greater than on the prior study. IMPRESSION: 1.) Small volume of ascites 2) paracentesis was postponed for 2 weeks later
[2019-12-28 12:07] VITALS: BP 130/66; TEMP 98.6
== END 2019-12-28 11:35 | disposition home or self-care (01) ==
LOC: ULT 10:49
PROVIDERS: ATTEND Internal Medicine Gastroenterology
DX: K74.60 Unspecified cirrhosis of liver (principal); R18.8 Other ascites; E11.9 Type 2 diabetes mellitus without complications; I10 Essential (primary) hypertension; Z87.891 Personal history of nicotine dependence; Z79.899 Other long term (current) drug therapy; Z53.29 Procedure and treatment not carried out because of patient's decision for other reasons
CPT/HCPCS: 76705; 85025; 85610

== ENCOUNTER 2020-01-11 09:23 | Outpatient (CLI) | payer MEDICARE, MEDICAID ==
--- NOTE | 2020-01-11 10:45 | ULT ---
Hepatic sonogram with duplex evaluation HISTORY: Cirrhosis. Ascites. FINDINGS: Gallbladder surgically absent. Common duct is upper limits of normal at 1.1 cm. Liver is heterogeneous with a nodular contour. Small amount of free fluid present within the right up per quadrant. Spleen is 12.2 cm length. No focal abnormalities. Good color and spectral Doppler flow within the hepatic and splenic arteries. Portal venous flow is t owards the liver. Hepatic venous flow is towards the IVC. IMPRESSION : Cirrhotic appearance of the liver. Spleen is upper limits of normal in size, there is only small amou nt of ascites on today's exam. Appropriate directional portal venous flow.
== END 2020-01-11 09:24 | disposition home or self-care (01) ==
LOC: ULT 09:23
PROVIDERS: ATTEND Physician Assistant Medical
DX: K74.60 Unspecified cirrhosis of liver (principal); R18.8 Other ascites
CPT/HCPCS: 76705

== ENCOUNTER 2020-03-07 10:02 | Day surgery (SDC) | payer MEDICARE, MEDICAID ==
[2020-03-06 13:21] VITALS: BMI 26.6
[2020-03-07 10:15] LABS: #Eosinphils 0.2 thou/uL (0.0-0.7); #Lymphocytes 1.2 thou/uL (1.20-3.40); #Monocytes 0.6 thou/uL (0.11-0.59); #Neutrophils 2.8 thou/uL (1.40-6.50); %Basophils 0.8 % (0.0-1.0); %Monocytes 11.9 % (0.0-10.0); %Neutrophils 57.3 % (42.0-75.0); Hemoglobin 14.2 g/dL (14.0-18.0); Mean Corpuscular HGB CONC 34.4 g/dL (32.0-36.0); Mean Corpuscular Hemoglobin 34.3 pg (27.0-31.0); Mean Corpuscular Volume 99.6 fL (78.0-98.0); Mean Platelet Volume 7.1 fL (7.4-10.4); Platelet Count 141 thou/uL (130-400); RBC Distribution Width 13.4 % (11.5-14.5); Red Blood Cell (RBC) Count 4.15 mill/uL (4.70-6.10)
[2020-03-07 10:21] LABS: INR-International Normal Ratio 1.2; PTT 36.3 sec (22.9-36.1); Prothrombin Time 15.6 sec (12.0-14.7)
[2020-03-07 11:22] VITALS: BP 116/59; TEMP 97.5
--- NOTE | 2020-03-07 12:40 | ULT ---
LIMITED ABDOMINAL ULTRASOUND: History: Abdominal ultrasound performed to assess for ascites. FINDINGS: There is low volume ascites. Paracentesis procedure is deferred. POS: AH
== END 2020-03-07 10:40 | disposition home or self-care (01) ==
LOC: ULT 10:02
PROVIDERS: ATTEND Internal Medicine Gastroenterology
DX: K74.60 Unspecified cirrhosis of liver (principal); R18.8 Other ascites; E11.9 Type 2 diabetes mellitus without complications; I10 Essential (primary) hypertension; F17.200 Nicotine dependence, unspecified, uncomplicated
CPT/HCPCS: 36415; 76705; 85025; 85610; 85730

== ENCOUNTER 2020-03-19 09:42 | Emergency (ER) | payer MEDICARE, MEDICAID ==
[2020-03-19 10:13] LABS: #Lymphocytes 0.9 thou/uL (1.20-3.40); #Monocytes 0.7 thou/uL (0.11-0.59); #Neutrophils 8.4 thou/uL (1.40-6.50); %Basophils 0.1 % (0.0-1.0); %Eosinophils 0.2 % (0.0-10.0); %Lymphocytes 8.8 % (21.0-51.0); %Monocytes 6.5 % (0.0-10.0); %Neutrophils 84.4 % (42.0-75.0); Hemoglobin 17.3 g/dL (14.0-18.0); Mean Corpuscular HGB CONC 34.2 g/dL (32.0-36.0); Mean Corpuscular Hemoglobin 33.7 pg (27.0-31.0); Mean Corpuscular Volume 98.4 fL (78.0-98.0); Mean Platelet Volume 7.4 fL (7.4-10.4); Platelet Count 172 thou/uL (130-400); RBC Distribution Width 13.2 % (11.5-14.5); Red Blood Cell (RBC) Count 5.13 mill/uL (4.70-6.10)
[2020-03-19 10:39] LABS: ALT (SGPT) 14 U/L (8-55); AST (SGOT) 27 U/L (5-34); Alkaline Phosphatase 115 U/L (40-110); Anion Gap 17 mmol/L (10-20); BUN (Urea Nitrogen) 46 mg/dL (8.4-25.7); Bilirubin, Total 1.5 mg/dL (0.2-1.2); Calc. Creatinine Clearance 0 mL/min (70-130); Calcium 9.6 mg/dL (7.8-10.44); Carbon Dioxide 28 mmol/L (23-31); Chloride 94 mmol/L (98-107); Estimated GFR-MDRD 43; Globulin 4.8 g/dL (2.4-3.5); Glucose 196 mg/dL (80-115); Lipase 23 U/L (8-78); Potassium 4.3 mmol/L (3.5-5.1); Protein, Total 8.8 g/dL (5.8-8.1); Sodium 135 mmol/L (136-145)
== END 2020-03-19 13:48 | disposition home or self-care (01) ==
LOC: ERS 09:42
DX: R11.2 Nausea with vomiting, unspecified (principal); K74.60 Unspecified cirrhosis of liver; F17.210 Nicotine dependence, cigarettes, uncomplicated; Z79.899 Other long term (current) drug therapy
CPT/HCPCS: 36415; 80053; 82140; 83690; 85025; 99284

== ENCOUNTER 2020-04-18 11:19 | Day surgery (SDC) | payer MEDICARE, MEDICAID ==
[2020-04-17 11:55] VITALS: BMI 26.6
--- NOTE | 2020-04-18 11:44 | ULT ---
Exam: Ultrasound guided paracentesis HISTORY: Ascites COMPARISON: 11/16/2019 FINDINGS: Successful ultrasound-guided paracentesis. Total of 1800 mL of yellow color ascites was asp irated. TECHNIQUE: Consent obtained reformatory ultrasound-guided paracentesis. Right lower quadrant was deem ed appropriate. Skin was prepped and draped in a sterile fashion. 1% lidocaine, buffered with sodium bicarbonate was used for local anesthesia. Under ultrasound guidance, a 5 Par[place]ayan 7 cm Yueh cat heter is advanced in the peritoneal space. A total of 1800 mL of yellow color ascites was aspirated. No immediate or postprocedural complications IMPRESSION: Successful ultrasound-guided paracentesis.
[2020-04-18 12:00] VITALS: BP 131/62; TEMP 98.2
[2020-04-18] MEDS ORDERED: FLU VACC QS2020-21(6MOS UP)/PF 60 MCG/0.5 ML SYRINGE IM ONE (12:00)
== END 2020-04-18 11:55 | disposition home or self-care (01) ==
LOC: ULT 11:19
PROVIDERS: ATTEND Internal Medicine Gastroenterology
PROC: 0W9G3ZZ Drainage of Peritoneal Cavity, Percutaneous Approach (ICD-10-PCS; principal; 2020-04-18)
DX: K74.60 Unspecified cirrhosis of liver (principal); R18.8 Other ascites; I10 Essential (primary) hypertension; E11.9 Type 2 diabetes mellitus without complications; F17.200 Nicotine dependence, unspecified, uncomplicated; Z79.899 Other long term (current) drug therapy
CPT/HCPCS: 49083; 90471; 90662; G0008

== ENCOUNTER 2020-05-30 11:07 | Day surgery (SDC) | payer MEDICARE, MEDICAID ==
[2020-05-30 07:39] VITALS: BMI 26.6
[2020-05-30] MEDS ORDERED: Lidocaine 1% PF 5 ML VIAL ONE (11:15)
[2020-05-30] MEDS ORDERED: Sodium Bicarbonate 2.5 MEQ/5 ML VIAL ONE (11:15)
[2020-05-30 11:26] LABS: #Eosinphils 0.1 thou/uL (0.0-0.7); #Lymphocytes 1.1 thou/uL (1.20-3.40); #Monocytes 0.4 thou/uL (0.11-0.59); #Neutrophils 3.2 thou/uL (1.40-6.50); %Basophils 0.6 % (0.0-1.0); %Eosinophils 2.5 % (0.0-10.0); %Lymphocytes 22.9 % (21.0-51.0); %Monocytes 7.8 % (0.0-10.0); %Neutrophils 66.3 % (42.0-75.0); Hemoglobin 14.2 g/dL (14.0-18.0); Mean Corpuscular HGB CONC 33.2 g/dL (32.0-36.0); Mean Corpuscular Volume 99.7 fL (78.0-98.0); Mean Platelet Volume 6.6 fL (7.4-10.4); Platelet Count 191 thou/uL (130-400); Red Blood Cell (RBC) Count 4.31 mill/uL (4.70-6.10); White Blood Cell (WBC) Count 4.8 thou/uL (4.8-10.8)
[2020-05-30 11:33] LABS: INR-International Normal Ratio 1.2; PTT 34.3 sec (22.9-36.1); Prothrombin Time 15.7 sec (12.0-14.7)
[2020-05-30] MEDS ORDERED: Albumin 25% 100 ML ONE (12:55)
[2020-05-30 12:56] VITALS: BP 129/76; TEMP 98.3
[2020-05-31] MEDS ORDERED: FLU VACC QS2020-21(6MOS UP)/PF 60 MCG/0.5 ML SYRINGE IM ONE (09:00)
== END 2020-05-30 12:40 | disposition home or self-care (01) ==
LOC: ULT 11:07
PROVIDERS: ATTEND Internal Medicine Gastroenterology
PROC: 0W9G3ZZ Drainage of Peritoneal Cavity, Percutaneous Approach (ICD-10-PCS; principal; 2020-05-30)
PROC: BW40ZZZ Ultrasonography of Abdomen (ICD-10-PCS; 2020-05-30)
DX: K74.60 Unspecified cirrhosis of liver (principal); R18.8 Other ascites; E11.9 Type 2 diabetes mellitus without complications; I10 Essential (primary) hypertension; F10.10 Alcohol abuse, uncomplicated; Z79.899 Other long term (current) drug therapy
CPT/HCPCS: 49083; 85025; 85610; 85730; P9047; 36415

== ENCOUNTER 2020-07-11 10:37 | Day surgery (SDC) | payer MEDICARE, MEDICAID ==
[2020-07-10 08:46] VITALS: BMI 26.6
[2020-07-11] MEDS ORDERED: Lidocaine 1% PF 5 ML VIAL ONE (10:38)
[2020-07-11 10:57] LABS: #Basophils 0.1 thou/uL (0.0-0.2); #Eosinphils 0.2 thou/uL (0.0-0.7); #Lymphocytes 1.2 thou/uL (1.20-3.40); #Monocytes 0.4 thou/uL (0.11-0.59); #Neutrophils 2.7 thou/uL (1.40-6.50); %Basophils 1.2 % (0.0-1.0); %Lymphocytes 27.1 % (21.0-51.0); %Monocytes 8.5 % (0.0-10.0); %Neutrophils 59.3 % (42.0-75.0); Hemoglobin 12.4 g/dL (14.0-18.0); Mean Corpuscular HGB CONC 33.2 g/dL (32.0-36.0); Mean Corpuscular Hemoglobin 34.1 pg (27.0-31.0); Mean Platelet Volume 6.2 fL (7.4-10.4); Platelet Count 212 thou/uL (130-400); RBC Distribution Width 14.6 % (11.5-14.5); Red Blood Cell (RBC) Count 3.64 mill/uL (4.70-6.10); White Blood Cell (WBC) Count 4.5 thou/uL (4.8-10.8)
[2020-07-11 11:11] LABS: INR-International Normal Ratio 1.2; PTT 34.8 sec (22.9-36.1); Prothrombin Time 15.8 sec (12.0-14.7)
[2020-07-11] MEDS ORDERED: Albumin 25% 100 ML ONE (11:26)
[2020-07-11 12:38] VITALS: BP 124/69; TEMP 98
== END 2020-07-11 12:05 | disposition home or self-care (01) ==
LOC: ULT 10:37
PROVIDERS: ATTEND Internal Medicine Gastroenterology
PROC: 0W9G3ZZ Drainage of Peritoneal Cavity, Percutaneous Approach (ICD-10-PCS; principal; 2020-07-11)
DX: K74.60 Unspecified cirrhosis of liver (principal); R18.8 Other ascites; E11.9 Type 2 diabetes mellitus without complications; I10 Essential (primary) hypertension; F10.11 Alcohol abuse, in remission; F17.200 Nicotine dependence, unspecified, uncomplicated
CPT/HCPCS: 49083; 85025; 85610; 85730; P9047; 36415

== ENCOUNTER 2020-08-20 09:56 | Day surgery (SDC) | payer MEDICARE, MEDICAID ==
[2020-08-19 15:50] VITALS: BMI 26.6
[2020-08-20 10:31] LABS: #Eosinphils 0.2 thou/uL (0.0-0.7); #Monocytes 0.4 thou/uL (0.11-0.59); #Neutrophils 3.9 thou/uL (1.40-6.50); %Basophils 0.7 % (0.0-1.0); %Eosinophils 2.9 % (0.0-10.0); %Lymphocytes 17.7 % (21.0-51.0); %Monocytes 7.2 % (0.0-10.0); %Neutrophils 71.5 % (42.0-75.0); Hemoglobin 13.2 g/dL (14.0-18.0); Mean Corpuscular Hemoglobin 33.2 pg (27.0-31.0); Mean Platelet Volume 6.6 fL (7.4-10.4); Platelet Count 195 thou/uL (130-400); RBC Distribution Width 14.3 % (11.5-14.5); Red Blood Cell (RBC) Count 3.98 mill/uL (4.70-6.10); White Blood Cell (WBC) Count 5.4 thou/uL (4.8-10.8)
[2020-08-20 10:39] LABS: INR-International Normal Ratio 1.1; PTT 33.1 sec (22.9-36.1); Prothrombin Time 14.8 sec (12.0-14.7)
[2020-08-20] MEDS ORDERED: Sodium Bicarbonate 2.5 MEQ/5 ML VIAL ONE (11:09)
[2020-08-20] MEDS ORDERED: Lidocaine 1% PF 5 ML VIAL ONE (11:09)
[2020-08-20] MEDS ORDERED: Albumin 25% 100 ML ONE (11:45)
[2020-08-20 12:54] VITALS: BP 130/50; TEMP 97.8
== END 2020-08-20 12:25 | disposition home or self-care (01) ==
LOC: ULT 09:56
PROVIDERS: ATTEND Internal Medicine Gastroenterology
PROC: 0W9G3ZZ Drainage of Peritoneal Cavity, Percutaneous Approach (ICD-10-PCS; principal; 2020-08-20)
DX: K74.60 Unspecified cirrhosis of liver (principal); R18.8 Other ascites; K72.90 Hepatic failure, unspecified without coma; E11.9 Type 2 diabetes mellitus without complications; I10 Essential (primary) hypertension; F10.11 Alcohol abuse, in remission; Z87.891 Personal history of nicotine dependence; Z79.82 Long term (current) use of aspirin; Z79.899 Other long term (current) drug therapy
CPT/HCPCS: 49083; 85025; 85610; 85730; P9047

== ENCOUNTER 2020-09-05 10:31 | Day surgery (SDC) | payer MEDICARE, MEDICAID ==
[2020-09-04 08:30] VITALS: BMI 26.6
[2020-09-05] MEDS ORDERED: Sodium Bicarbonate 2.5 MEQ/5 ML VIAL ONE (10:59)
[2020-09-05] MEDS ORDERED: Lidocaine 1% PF 5 ML VIAL ONE (10:59)
[2020-09-05] MEDS ORDERED: Albumin 25% 100 ML ONE (12:21)
[2020-09-05 12:52] VITALS: BP 128/66; TEMP 98
== END 2020-09-05 12:15 | disposition home or self-care (01) ==
LOC: ULT 10:31
PROVIDERS: ATTEND Internal Medicine Gastroenterology
PROC: 0W9G3ZZ Drainage of Peritoneal Cavity, Percutaneous Approach (ICD-10-PCS; principal; 2020-09-05)
DX: K74.60 Unspecified cirrhosis of liver (principal); R18.8 Other ascites; K72.90 Hepatic failure, unspecified without coma; K76.0 Fatty (change of) liver, not elsewhere classified; E11.22 Type 2 diabetes mellitus with diabetic chronic kidney disease; I10 Essential (primary) hypertension; F10.10 Alcohol abuse, uncomplicated; Z87.891 Personal history of nicotine dependence
CPT/HCPCS: 49083; P9047

== ENCOUNTER 2020-09-19 10:36 | Day surgery (SDC) | payer MEDICARE, MEDICAID ==
[2020-09-18 11:43] VITALS: BMI 26.6
[2020-09-19] MEDS ORDERED: Sodium Bicarbonate 2.5 MEQ/5 ML VIAL ONE (10:51)
[2020-09-19] MEDS ORDERED: Albumin 25% 100 ML ONE (10:51)
[2020-09-19] MEDS ORDERED: Lidocaine 1% PF 5 ML VIAL ONE (10:51)
[2020-09-19 11:45] LABS: Anion Gap 9 mmol/L (10-20); BUN (Urea Nitrogen) 9 mg/dL (8.4-25.7); Calc. Creatinine Clearance 92 mL/min (70-130); Calcium 8.1 mg/dL (7.8-10.44); Carbon Dioxide 24 mmol/L (23-31); Chloride 105 mmol/L (98-107); Glucose 121 mg/dL (80-115); Potassium 3.8 mmol/L (3.5-5.1); Sodium 134 mmol/L (136-145)
[2020-09-19 13:44] VITALS: BP 109/56; TEMP 98.5
== END 2020-09-19 11:55 | disposition home or self-care (01) ==
LOC: ULT 10:36
PROVIDERS: ATTEND Internal Medicine Gastroenterology
PROC: 0W9G3ZZ Drainage of Peritoneal Cavity, Percutaneous Approach (ICD-10-PCS; principal; 2020-09-19)
DX: K74.60 Unspecified cirrhosis of liver (principal); R18.8 Other ascites; K72.90 Hepatic failure, unspecified without coma; K76.0 Fatty (change of) liver, not elsewhere classified; F17.210 Nicotine dependence, cigarettes, uncomplicated; E11.9 Type 2 diabetes mellitus without complications; I10 Essential (primary) hypertension; F10.10 Alcohol abuse, uncomplicated; Z79.899 Other long term (current) drug therapy
CPT/HCPCS: 49083; 80048; P9047

== ENCOUNTER 2020-09-27 12:40 | Inpatient (IN) | payer MEDICARE, MEDICAID ==
[2020-09-27 13:24] LABS: #Eosinphils 0.2 thou/uL (0.0-0.7); #Lymphocytes 1.2 thou/uL (1.20-3.40); #Monocytes 0.6 thou/uL (0.11-0.59); #Neutrophils 4.2 thou/uL (1.40-6.50); %Basophils 0.5 % (0.0-1.0); %Eosinophils 3.1 % (0.0-10.0); %Monocytes 9.9 % (0.0-10.0); %Neutrophils 67.5 % (42.0-75.0); Hemoglobin 14.5 g/dL (14.0-18.0); Mean Corpuscular HGB CONC 35.1 g/dL (32.0-36.0); Mean Corpuscular Hemoglobin 33.8 pg (27.0-31.0); Mean Corpuscular Volume 96.5 fL (78.0-98.0); Mean Platelet Volume 6.5 fL (7.4-10.4); Platelet Count 232 thou/uL (130-400); RBC Distribution Width 14.1 % (11.5-14.5); Red Blood Cell (RBC) Count 4.27 mill/uL (4.70-6.10); White Blood Cell (WBC) Count 6.2 thou/uL (4.8-10.8)
[2020-09-27 13:47] LABS: ALT (SGPT) 16 U/L (8-55); AST (SGOT) 20 U/L (5-34); Albumin 3.2 g/dL (3.4-4.8); Alkaline Phosphatase 104 U/L (40-110); Anion Gap 12 mmol/L (10-20); BUN (Urea Nitrogen) 15 mg/dL (8.4-25.7); Bilirubin, Total 0.8 mg/dL (0.2-1.2); Calc. Creatinine Clearance 0 mL/min (70-130); Calcium 8.9 mg/dL (7.8-10.44); Carbon Dioxide 25 mmol/L (23-31); Chloride 105 mmol/L (98-107); Globulin 4.1 g/dL (2.4-3.5); Glucose 131 mg/dL (80-115); Potassium 3.8 mmol/L (3.5-5.1); Protein, Total 7.3 g/dL (5.8-8.1); Sodium 138 mmol/L (136-145)
[2020-09-27] MEDS ORDERED: Sodium Chloride 0.9% 1,000 ML IV SCH (15:00)
[2020-09-27] MEDS ORDERED: HumaLOG 300 UNITS/3 ML VIAL SC PRN (15:02)
[2020-09-27] MEDS ORDERED: Dextrose 5% in Water 1,000 ML IV PRN (15:02)
[2020-09-27] MEDS ORDERED: Dextrose 50% Abboject 50 ML SYRINGE SLOW IVP PRN (15:02)
[2020-09-27 15:06] LABS: Bilirubin Negative (Negative); Blood, Urine Negative (Negative); Clarity Clear (Clear); Glucose, Urine (Dipstick) Normal (Negative); Ketone, Urine Negative (Negative); Leukocyte Negative Leu/uL (Negative); Nitrite Negative (Negative); Protein, Urine (Dipstick) Negative (Neg-Trace); Specific Gravity, Urine 1.015 (1.002-1.036); Urobilinogen Normal mg/dL (Less than 2)
[2020-09-27] MEDS ORDERED: Metoclopramide HCl 10 MG/2 ML VIAL IVP PRN (15:08)
[2020-09-27] MEDS: cefTRIAXone\\ROCEPHIN 2 GM in Sodium Chloride 0.9% 100 ML IVPB SCH (18:42)
[2020-09-27] MEDS: Sodium Chloride 0.9% 1,000 ML IV SCH (19:02)
[2020-09-27] MEDS: Rifaximin 550 MG TAB PO SCH (20:53)
[2020-09-27] MEDS: Lacosamide 50 mg Tablet PER TUBE SCH (20:53)
[2020-09-28 01:34] LABS: SARS-CoV-2 NAA Rapid Test DETECTED (NotDetected)
[2020-09-28 04:15] LABS: #Eosinphils 0.1 thou/uL (0.0-0.7); #Monocytes 0.5 thou/uL (0.11-0.59); #Neutrophils 3.6 thou/uL (1.40-6.50); %Basophils 0.6 % (0.0-1.0); %Eosinophils 2.5 % (0.0-10.0); %Lymphocytes 18.5 % (21.0-51.0); %Monocytes 9.4 % (0.0-10.0); Hemoglobin 13.1 g/dL (14.0-18.0); Mean Corpuscular HGB CONC 33.6 g/dL (32.0-36.0); Mean Corpuscular Hemoglobin 32.2 pg (27.0-31.0); Mean Platelet Volume 6.5 fL (7.4-10.4); Platelet Count 238 thou/uL (130-400); RBC Distribution Width 13.9 % (11.5-14.5); Red Blood Cell (RBC) Count 4.07 mill/uL (4.70-6.10); White Blood Cell (WBC) Count 5.1 thou/uL (4.8-10.8)
[2020-09-28 04:34] LABS: Anion Gap 12 mmol/L (10-20); BUN (Urea Nitrogen) 15 mg/dL (8.4-25.7); Calc. Creatinine Clearance 99 mL/min (70-130); Calcium 8.7 mg/dL (7.8-10.44); Carbon Dioxide 21 mmol/L (23-31); Chloride 110 mmol/L (98-107); Glucose 138 mg/dL (80-115); Potassium 3.3 mmol/L (3.5-5.1); Sodium 140 mmol/L (136-145)
[2020-09-28] MEDS: Sodium Chloride 0.9% 1,000 ML IV SCH ×2 (04:37→18:06)
[2020-09-28] MEDS: Lacosamide 50 mg Tablet PER TUBE SCH ×2 (09:29→21:33)
[2020-09-28] MEDS: Rifaximin 550 MG TAB PO SCH ×2 (09:29→21:33)
[2020-09-28] MEDS: Famotidine/PF 20 mg/2ml Vial SLOW IVP SCH (09:30)
[2020-09-28] MEDS: Enoxaparin Sodium 40 MG/0.4 ML SYRINGE SC SCH (09:30)
[2020-09-28] MEDS ORDERED: Lorazepam 2 MG/ML VIAL SLOW IVP PRN (17:02)
[2020-09-28] MEDS: cefTRIAXone\\ROCEPHIN 2 GM in Sodium Chloride 0.9% 100 ML IVPB SCH (18:06)
[2020-09-29] MEDS: Sodium Chloride 0.9% 1,000 ML IV SCH ×3 (06:39→13:25)
[2020-09-29 06:58] VITALS: BMI 21.2
[2020-09-29] MEDS: Enoxaparin Sodium 40 MG/0.4 ML SYRINGE SC SCH (09:33)
[2020-09-29] MEDS: Famotidine/PF 20 mg/2ml Vial SLOW IVP SCH (09:34)
[2020-09-29] MEDS: Lacosamide 50 mg Tablet PER TUBE SCH (09:34)
[2020-09-29] MEDS: Rifaximin 550 MG TAB PO SCH (09:35)
[2020-09-29] MEDS ORDERED: Famotidine 20 MG TAB PO SCH (09:45)
[2020-09-29 15:27] VITALS: BP 113/65; TEMP 98.2
[2020-09-29] MEDS: cefTRIAXone\\ROCEPHIN 2 GM in Sodium Chloride 0.9% 100 ML IVPB SCH (17:27)
[2020-09-30] MEDS ORDERED: Famotidine 20 MG TAB PO SCH (09:00)
== END 2020-09-29 18:30 | disposition home or self-care (01) | DRG 442 ==
LOC: ERS 12:40 → 2NO 14:54 → IMCU/EMU 19:22 → 2NO 09-28 19:11
PROVIDERS: ADMIT Family Medicine; ATTEND Internal Medicine
PROC: 8E0ZXY6 Isolation (ICD-10-PCS; principal; 2020-09-28)
DX: K72.90 Hepatic failure, unspecified without coma (principal); I45.2 Bifascicular block; R18.8 Other ascites; E11.9 Type 2 diabetes mellitus without complications; I10 Essential (primary) hypertension; G40.909 Epilepsy, unspecified, not intractable, without status epilepticus; R94.31 Abnormal electrocardiogram [ECG] [EKG]; E86.0 Dehydration; K74.60 Unspecified cirrhosis of liver; F17.210 Nicotine dependence, cigarettes, uncomplicated; Z79.82 Long term (current) use of aspirin; Z79.899 Other long term (current) drug therapy; Z90.49 Acquired absence of other specified parts of digestive tract; Z98.890 Other specified postprocedural states; Z86.16 Personal history of COVID-19
CPT/HCPCS: 36415; 36416; 70450; 71045; 74018; 76705; 80048; 80053; 81003; 82140; 83605; 84484; 85025; 87040; 93005; 94760; J0696; J1650; J2060; J3490; S0028; U0002; U0003; U0005

== ENCOUNTER 2022-02-04 17:44 | Inpatient (IN) | payer MEDICARE, MEDICAID ==
[~2022-02-04 17:44] MED LIST changes: +Iopamidol-370 76% 500 ML 1 ML ONE; -Lidocaine 1% PF 5 ML VIAL ONE; -Sodium Bicarbonate 2.5 MEQ/5 ML VIAL ONE
[2022-02-04 18:12] LABS: #Lymphocytes 1.1 thou/uL (1.20-3.40); #Monocytes 0.6 thou/uL (0.11-0.59); #Neutrophils 4.6 thou/uL (1.40-6.50); %Basophils 0.2 % (0.0-1.0); %Eosinophils 0.7 % (0.0-10.0); %Lymphocytes 17.1 % (21.0-51.0); %Monocytes 9.7 % (0.0-10.0); %Neutrophils 72.2 % (42.0-75.0); Hemoglobin 16.7 g/dL (14.0-18.0); Mean Corpuscular HGB CONC 33.3 g/dL (32.0-36.0); Mean Corpuscular Hemoglobin 31.6 pg (27.0-31.0); Mean Platelet Volume 7.6 fL (7.4-10.4); Platelet Count 123 thou/uL (130-400); RBC Distribution Width 14.9 % (11.5-14.5); Red Blood Cell (RBC) Count 5.28 mill/uL (4.70-6.10); White Blood Cell (WBC) Count 6.4 thou/uL (4.8-10.8)
[2022-02-04 18:26] LABS: ALT (SGPT) 25 U/L (8-55); AST (SGOT) 36 U/L (5-34); Albumin 3.6 g/dL (3.4-4.8); Alkaline Phosphatase 112 U/L (40-110); Anion Gap 14 mmol/L (10-20); BUN (Urea Nitrogen) 20 mg/dL (8.4-25.7); Bilirubin, Total 1.4 mg/dL (0.2-1.2); Calc. Creatinine Clearance 0 mL/min (70-130); Calcium 9.6 mg/dL (7.8-10.44); Carbon Dioxide 25 mmol/L (23-31); Chloride 100 mmol/L (98-107); Estimated GFR 80; Globulin 4.1 g/dL (2.4-3.5); Glucose 130 mg/dL (80-115); Potassium 3.7 mmol/L (3.5-5.1); Protein, Total 7.7 g/dL (5.8-8.1); Sodium 135 mmol/L (136-145)
[2022-02-04 18:50] LABS: INR-International Normal Ratio 1.1; Prothrombin Time 14.5 sec (12.0-14.7)
[2022-02-04 18:51] LABS: PTT 32.8 sec (22.9-36.1)
[2022-02-04] MEDS ORDERED: Ondansetron PF 4 MG/2 ML Vial IVP PRN (19:40)
[2022-02-04] MEDS ORDERED: Acetaminophen 325 MG TAB PO PRN (19:40)
[2022-02-04] MEDS ORDERED: Dextrose 5% in Water 1,000 ML IV PRN (19:44)
[2022-02-04] MEDS ORDERED: HumaLOG 300 UNITS/3 ML VIAL SC PRN ×2 (19:44)
[2022-02-04] MEDS ORDERED: Dextrose 50% Abboject 50 ML SYRINGE SLOW IVP PRN (19:44)
[2022-02-04] MEDS ORDERED: hydrALAZINE 20 MG/ML VIAL SLOW IVP PRN (19:45)
[2022-02-04] MEDS ORDERED: Labetalol HCl 100 MG/20 ML VIAL SLOW IVP PRN (19:45)
[2022-02-04] MEDS ORDERED: Aspirin Chewable 81 MG TAB ONE (19:55)
[2022-02-05 04:45] LABS: #Eosinphils 0.1 thou/uL (0.0-0.7); #Lymphocytes 1.2 thou/uL (1.20-3.40); #Monocytes 0.6 thou/uL (0.11-0.59); %Basophils 0.8 % (0.0-1.0); %Eosinophils 1.4 % (0.0-10.0); %Lymphocytes 19.6 % (21.0-51.0); %Monocytes 10.3 % (0.0-10.0); %Neutrophils 67.8 % (42.0-75.0); Hemoglobin 14.9 g/dL (14.0-18.0); Mean Corpuscular HGB CONC 33.4 g/dL (32.0-36.0); Mean Corpuscular Hemoglobin 32.1 pg (27.0-31.0); Mean Platelet Volume 7.3 fL (7.4-10.4); Platelet Count 119 thou/uL (130-400); RBC Distribution Width 14.8 % (11.5-14.5); Red Blood Cell (RBC) Count 4.65 mill/uL (4.70-6.10); White Blood Cell (WBC) Count 5.9 thou/uL (4.8-10.8)
[2022-02-05 05:13] LABS: Anion Gap 15 mmol/L (10-20); BUN (Urea Nitrogen) 21 mg/dL (8.4-25.7); Calc. Creatinine Clearance 76 mL/min (70-130); Calcium 9.1 mg/dL (7.8-10.44); Carbon Dioxide 25 mmol/L (23-31); Cardiac Risk 2.7 (Less than 4.5); Chloride 98 mmol/L (98-107); Cholesterol 165 mg/dl (< 200 Desired); Estimated GFR 96; Glucose 91 mg/dL (80-115); HDL Cholesterol 62 mg/dL (>60 Neg Risk); LDL Cholesterol, Calculated 92 mg/dL; Magnesium 1.9 mg/dL (1.6-2.6); Potassium 3.6 mmol/L (3.5-5.1); Sodium 134 mmol/L (136-145); Triglycerides 57 mg/dL (Less than 150)
[2022-02-05 05:36] LABS: Hemoglobin A1c 5.8 % (4.0-6.0)
[2022-02-05] MEDS ORDERED: Aspirin 81 mg Enteric Coated Tablet PO SCH (09:00)
[2022-02-05] MEDS ORDERED: levETIRAcetam 500 MG TAB PO SCH ×2 (11:45→21:00)
[2022-02-05] MEDS ORDERED: Lorazepam (BATCHED) 2 MG/ML SYR SLOW IVP SCH (14:45)
[2022-02-05] MEDS ORDERED: Lorazepam 2 MG/ML VIAL SLOW IVP SCH (15:00)
[2022-02-05] MEDS ORDERED: levETIRAcetam 3,000 MG, Admixture Fee 1 EACH in Sodium Chloride 0.9% 100 ML SLOW IVP SCH (15:00)
[2022-02-05 15:15] VITALS: BMI 25.2
[2022-02-05] MEDS: Atorvastatin Calcium 40 MG TAB PO SCH (21:05)
[2022-02-05] MEDS: levETIRAcetam 500 MG/5 ML VIAL SLOW IVP SCH (21:05)
[2022-02-06 05:12] LABS: #Basophils 0.1 thou/uL (0.0-0.2); #Eosinphils 0.1 thou/uL (0.0-0.7); #Lymphocytes 1.2 thou/uL (1.20-3.40); #Monocytes 0.6 thou/uL (0.11-0.59); #Neutrophils 4.6 thou/uL (1.40-6.50); %Eosinophils 1.2 % (0.0-10.0); %Monocytes 8.6 % (0.0-10.0); %Neutrophils 71.3 % (42.0-75.0); Hemoglobin 14.4 g/dL (14.0-18.0); Mean Corpuscular HGB CONC 34.1 g/dL (32.0-36.0); Mean Corpuscular Hemoglobin 32.6 pg (27.0-31.0); Mean Corpuscular Volume 95.5 fL (78.0-98.0); Mean Platelet Volume 7.3 fL (7.4-10.4); Platelet Count 120 thou/uL (130-400); RBC Distribution Width 14.7 % (11.5-14.5); Red Blood Cell (RBC) Count 4.41 mill/uL (4.70-6.10); White Blood Cell (WBC) Count 6.4 thou/uL (4.8-10.8)
[2022-02-06 05:25] LABS: Anion Gap 15 mmol/L (10-20); BUN (Urea Nitrogen) 22 mg/dL (8.4-25.7); Calc. Creatinine Clearance 78 mL/min (70-130); Carbon Dioxide 22 mmol/L (23-31); Chloride 101 mmol/L (98-107); Estimated GFR 97; Glucose 88 mg/dL (80-115); Magnesium 1.8 mg/dL (1.6-2.6); Potassium 4.6 mmol/L (3.5-5.1); Sodium 133 mmol/L (136-145)
[2022-02-06 09:00] LABS: Actual Bicarbonate (HCO3v) 23 mEq/L (22-28); Base Excess 0.5 mEq/L (-2.0 to +3.0); Calcium, Ionized (venous) 1.06 mmol/L (1.16-1.32); Chloride (VBG) 100 mmol/L (98-106); Hemoglobin (Hb) 16.3 g/dL (12.6-17.4); Potassium (VBG) 4.55 mmol/L (3.70-5.30); Sodium 132.1 mmol/L (133-146); pH (venous) 7.48 (7.32-7.43)
[2022-02-06] MEDS: Rifaximin 550 MG TAB PO SCH ×2 (09:18→20:04)
[2022-02-06] MEDS: levETIRAcetam 500 MG/5 ML VIAL SLOW IVP SCH ×2 (09:18→20:22)
[2022-02-06] MEDS: Aspirin Chewable 81 MG TAB PO SCH (09:18)
[2022-02-06 13:56] LABS: CSF Source CSF; Clarity Clear (Clear); Tube # 4
[2022-02-06] MEDS ORDERED: Nicotine 21 MG PATCH TD SCH (16:30)
[2022-02-06] MEDS: Mometasone 200 MCG/Formoterol 5 MCG 120 PUFF INHALER INH SCH (18:18)
[2022-02-06] MEDS: Atorvastatin Calcium 40 MG TAB PO SCH (20:04)
[2022-02-06] MEDS: Nicotine 21 MG PATCH TD SCH (20:22)
[2022-02-07] MEDS ORDERED: Lorazepam 2 MG/ML VIAL SLOW IVP SCH (02:30)
[2022-02-07 03:47] LABS: #Basophils 0.1 thou/uL (0.0-0.2); #Lymphocytes 0.5 thou/uL (1.20-3.40); #Monocytes 0.7 thou/uL (0.11-0.59); #Neutrophils 10.3 thou/uL (1.40-6.50); %Basophils 0.6 % (0.0-1.0); %Eosinophils 0.2 % (0.0-10.0); %Lymphocytes 4.6 % (21.0-51.0); %Monocytes 5.8 % (0.0-10.0); %Neutrophils 88.9 % (42.0-75.0); Hemoglobin 15.6 g/dL (14.0-18.0); Mean Corpuscular HGB CONC 33.3 g/dL (32.0-36.0); Mean Corpuscular Hemoglobin 32.2 pg (27.0-31.0); Mean Corpuscular Volume 96.7 fL (78.0-98.0); Mean Platelet Volume 7.5 fL (7.4-10.4); Platelet Count 133 thou/uL (130-400); RBC Distribution Width 14.9 % (11.5-14.5); Red Blood Cell (RBC) Count 4.86 mill/uL (4.70-6.10); White Blood Cell (WBC) Count 11.5 thou/uL (4.8-10.8)
[2022-02-07 03:55] LABS: ALT (SGPT) 20 U/L (8-55); AST (SGOT) 33 U/L (5-34); Albumin 3.2 g/dL (3.4-4.8); Alkaline Phosphatase 99 U/L (40-110); Anion Gap 16 mmol/L (10-20); BUN (Urea Nitrogen) 26 mg/dL (8.4-25.7); Bilirubin, Total 2.6 mg/dL (0.2-1.2); Calc. Creatinine Clearance 77 mL/min (70-130); Calcium 9.3 mg/dL (7.8-10.44); Carbon Dioxide 21 mmol/L (23-31); Chloride 101 mmol/L (98-107); Estimated GFR 96; Globulin 3.9 g/dL (2.4-3.5); Glucose 120 mg/dL (80-115); Magnesium 1.8 mg/dL (1.6-2.6); Potassium 4.5 mmol/L (3.5-5.1); Protein, Total 7.1 g/dL (5.8-8.1); Sodium 133 mmol/L (136-145)
[2022-02-07 03:56] LABS: INR-International Normal Ratio 1.2; Prothrombin Time 15.2 sec (12.0-14.7)
[2022-02-07 03:58] LABS: PTT 35.1 sec (22.9-36.1)
[2022-02-07] MEDS: Mometasone 200 MCG/Formoterol 5 MCG 120 PUFF INHALER INH SCH ×2 (07:56→18:13)
[2022-02-07 07:59] LABS: Actual Bicarbonate (HCO3a) 21.5 mEq/L (22-28); Base Excess (BEa) -2.9 mEq/L (-2.0 to +3.0); CO2 Tension 36.8 mmHg (35.0-45.0); Calcium, Ionized (arterial) 1.19 mmol/L (1.12-1.30); Carboxyhemoglobin (COHb) 0.7 gm% (0.0-3.0); Hemoglobin (Hb) 16.3 g/dL (14.0-18.0); Potassium - ABG Lab 4.53 mmol/L (3.70-5.30); pH, Arterial 7.38 (7.35-7.45)
[2022-02-07 08:00] LABS: O2 Tension (PaO2), arterial 52.5 mmHg (> 80.0); Puncture Site RRA
[2022-02-07] MEDS ORDERED: Midazolam HCl 2 mg/2 ml Vial IVP SCH (08:20)
[2022-02-07] MEDS ORDERED: Midazolam HCl 2 mg/2 ml Vial ONE (08:20)
[2022-02-07] MEDS ORDERED: Propofol 1,000 MG/100 ML VIAL IV ONE (08:21)
[2022-02-07] MEDS ORDERED: NOREPINEPHRINE 8 MG/250 ML-D5W 250 ML ONE (08:23)
[2022-02-07] MEDS ORDERED: Ventilator Sedation Protocol 1 EACH FS SCH (08:45)
[2022-02-07] MEDS ORDERED: Midazolam HCl 2 mg/2 ml Vial SLOW IVP PRN (09:22)
[2022-02-07] MEDS ORDERED: Fentanyl CADD 100 ML IV SCH (09:30)
[2022-02-07] MEDS ORDERED: Morphine 2 MG/ML VIAL SLOW IVP PRN (09:30)
[2022-02-07] MEDS ORDERED: Propofol 1,000 MG/100 ML VIAL IV PRN (09:30)
[2022-02-07] MEDS ORDERED: Fentanyl BOLUS 250 ML IVPB PRN (09:30)
[2022-02-07] MEDS ORDERED: DISCONTINUE PREVIOUS NARCOTIC PAIN MEDICATIONS AND BENZODIAZEPINES FS SCH (09:30)
[2022-02-07] MEDS ORDERED: Propofol BOLUS 1,000 MG/100 ML VIAL IV PRN (09:30)
[2022-02-07 09:41] LABS: Actual Bicarbonate (HCO3a) 21.8 mEq/L (22-28); Base Excess (BEa) -0.2 mEq/L (-2.0 to +3.0); CO2 Tension 28.9 mmHg (35.0-45.0); Calcium, Ionized (arterial) 1.16 mmol/L (1.12-1.30); Carboxyhemoglobin (COHb) 0.5 gm% (0.0-3.0); Hemoglobin (Hb) 15.4 g/dL (14.0-18.0); Potassium - ABG Lab 4.38 mmol/L (3.70-5.30)
[2022-02-07 09:42] LABS: O2 Tension (PaO2), arterial 42.5 mmHg (> 80.0)
[2022-02-07 09:43] LABS: ALV-art Gradient 206.575 mmHg (0-20); Puncture Site LBA
[2022-02-07] MEDS: Aspirin Chewable 81 MG TAB PO SCH (09:56)
[2022-02-07] MEDS: Rifaximin 550 MG TAB PO SCH ×2 (09:56→20:38)
[2022-02-07] MEDS: levETIRAcetam 500 MG/5 ML VIAL SLOW IVP SCH ×2 (09:56→20:37)
[2022-02-07 11:36] LABS: Syphilis Antibody Nonreactive (Nonreactive); Syphilis Antibody Index 0.07 S/CO (<1.00 Non-Reactive)
[2022-02-07] MEDS ORDERED: Lacosamide 200 MG in Sodium Chloride 0.9% 50 ML IVPB SCH ×3 (11:45→21:00)
[2022-02-07] MEDS ORDERED: Fosphenytoin Sodium 200 MG in Sodium Chloride 0.9% 50 ML IVPB SCH ×2 (12:15→21:00)
[2022-02-07] MEDS ORDERED: Piperacillin/Tazobactam 3.375 GM in Sodium Chloride 0.9% 100 ML IVPB SCH ×3 (13:15→18:00)
[2022-02-07] MEDS ORDERED: Sodium Chloride 0.9% 1,000 ML IV SCH (18:30)
[2022-02-07] MEDS: Nicotine 21 MG PATCH TD SCH (20:38)
[2022-02-07] MEDS: Atorvastatin Calcium 40 MG TAB PO SCH (20:38)
[2022-02-07 21:32] VITALS: BP 109/65
[2022-02-07 21:35] VITALS: TEMP 100.7
[2022-02-08 15:37] LABS: VDRL, CSF Non Reactive (Non Rea:<1:1)
[2022-02-10 15:16] LABS: West Nile Virus IgG Ab - CSF Negative (Negative); West Nile Virus IgM Ab - CSF Negative (Negative)
== END 2022-02-07 22:45 | disposition short-term general hospital (02) | DRG 64 ==
LOC: ERS 17:44 → NEURO 19:30 → OBSVTOIN 02-05 02:45 → IMCU/EMU 02-06 12:39 → CCU 02-07 08:24
PROVIDERS: ADMIT Internal Medicine; ATTEND Family Medicine
PROC: 4A10X4Z Monitoring of Central Nervous Electrical Activity, External Approach (ICD-10-PCS; 2022-02-05)
PROC: 009U3ZX Drainage of Spinal Canal, Percutaneous Approach, Diagnostic (ICD-10-PCS; 2022-02-06)
PROC: B01B1ZZ Fluoroscopy of Spinal Cord using Low Osmolar Contrast (ICD-10-PCS; 2022-02-06)
PROC: 4A10X4Z Monitoring of Central Nervous Electrical Activity, External Approach (ICD-10-PCS; 2022-02-06)
PROC: 5A1935Z Respiratory Ventilation, Less than 24 Consecutive Hours (ICD-10-PCS; principal; 2022-02-07)
PROC: 0BH18EZ Insertion of Endotracheal Airway into Trachea, Via Natural or Artificial Opening Endoscopic (ICD-10-PCS; 2022-02-07)
PROC: 4A10X4Z Monitoring of Central Nervous Electrical Activity, External Approach (ICD-10-PCS; 2022-02-07)
PROC: 0T9B70Z Drainage of Bladder with Drainage Device, Via Natural or Artificial Opening (ICD-10-PCS; 2022-02-07)
DX: I63.9 Cerebral infarction, unspecified (principal); G93.41 Metabolic encephalopathy; G93.6 Cerebral edema; J96.01 Acute respiratory failure with hypoxia; J69.0 Pneumonitis due to inhalation of food and vomit; G81.94 Hemiplegia, unspecified affecting left nondominant side; E87.1 Hypo-osmolality and hyponatremia; G40.909 Epilepsy, unspecified, not intractable, without status epilepticus; I10 Essential (primary) hypertension; E11.9 Type 2 diabetes mellitus without complications; K70.30 Alcoholic cirrhosis of liver without ascites; F17.210 Nicotine dependence, cigarettes, uncomplicated; D69.6 Thrombocytopenia, unspecified; Z90.49 Acquired absence of other specified parts of digestive tract; Z79.899 Other long term (current) drug therapy; Z20.822 Contact with and (suspected) exposure to COVID-19
CPT/HCPCS: 36415; 36416; 36600; 62270; 70450; 70496; 70498; 70551; 71045; 76705; 80048; 80053; 80061; 82140; 82805; 82945; 83036; 83605; 83735; 83930; 84157; 84443; 84484; 85025; 85610; 85652; 85730; 86140; 86592; 86612; 86635; 86698; 86780; 86788; 86789; 87040; 87070; 87205; 87498; 87529; 87633; 87798; 89051; 93005; 94002; 94640; 94760; 95712; 95816; 95819; 95957; 96374; 96375; C9254; G0378; J0133; J1953; J2060; J2250; J2543; J2704; J3490; J7050; J7620; Q2009; Q9967; U0003; U0005